=== PATIENT | male | born 1960 | race American Indian/Alaskan Native ===

== ENCOUNTER 2017-09-03 00:34 | Emergency (ER) | payer SELFPAY ==
[2017-09-03 02:34] LABS: Bacteria,Urine 1+ /HPF (Negative); WBC,Urine < 1.0 /HPF (0.0-6.0)
[2017-09-03 02:57] LABS: Bilirubin,Urine NEG (Negative); Blood,Urine NEG (Negative); Color,Urine Straw (Yellow); Protein,Urine <15 mg/dL mg/dL (Negative); Urobilinogen,Urine < 2.0 mg/dL (<2.0)
[2017-09-03] MEDS ORDERED: CATAPRES ONE (04:05)
[2017-09-03] MEDS ORDERED: CATAPRES PO ONE (04:09)
[2017-09-03 04:54] VITALS: BP 160/101
--- NOTE | 2017-09-03 04:58 | Emergency Department Report ---
ED Male HPI - General Chief complaint: Urogenital-Male Stated complaint: DRIP URINATING Time Seen by Provider: 09/03/17 03:43 Source: patient Mode of arrival: Ambulatory Limitations: No Limitations - History of Present Illness Initial comments: Patient is a 57-year-old male with a history of blood pressure is not medication presents to ED complaining incomplete voiding for the past week. Patient states above 3 years ago he was said he had a prostate infection and was given some medication but never followed up. Patient states he would like referral for specialists that he can follow up. Patient states he has no pain or burning with urination. Patient states he does not notice any blood in his urine. He denies pain of discharge, testicular swelling or pain, problems defecating, fever. - Related Data Previous Rx's Medication Instructions Recorded Last Taken Type Ciprofloxacin HCl [Ciprofloxacin 500 mg PO Q12HR #14 tab 09/03/17 Unknown Rx TAB] amLODIPine [Norvasc] 10 mg PO DAILY #40 tab 09/03/17 Unknown Rx diphenhydrAMINE [Benadryl CAP] 25 mg PO QHS PRN #20 capsule 09/03/17 Unknown Rx Allergies Allergy/AdvReac Type Severity Reaction Status Date / Time No Known Allergies Allergy Verified 09/03/17 04:13 ED Review of Systems ROS: Stated complaint: DRIP URINATING Other details as noted in HPI Constitutional: denies: chills, fever Eyes: denies: eye pain, eye discharge, vision change ENT: denies: ear pain, throat pain Respiratory: denies: cough, shortness of breath, wheezing Cardiovascular: denies: chest pain, palpitations Endocrine: no symptoms reported Gastrointestinal: denies: abdominal pain, nausea, diarrhea, constipation, hematochezia Genitourinary: denies: urgency, dysuria, frequency, hematuria, discharge, testicular pain, testicular mass Musculoskeletal: denies: back pain, joint swelling, arthralgia Skin: denies: rash, lesions Neurological: denies: headache, weakness, numbness, paresthesias Psychiatric: denies: anxiety, depression Hematological/Lymphatic: denies: easy bleeding, easy bruising ED Past Medical Hx - Past Medical History Previous Medical History?: Yes Hx Hypertension: Yes - Surgical History Past Surgical History?: Yes Additional Surgical History: stents x2 - Social History Smoking Status: Never Smoker Substance Use Type: Alcohol - Medications Home Medications: Home Medications Medication Instructions Recorded Confirmed Last Taken Type Ciprofloxacin HCl [Ciprofloxacin 500 mg PO Q12HR #14 tab 09/03/17 Unknown Rx TAB] amLODIPine [Norvasc] 10 mg PO DAILY #40 tab 09/03/17 Unknown Rx diphenhydrAMINE [Benadryl CAP] 25 mg PO QHS PRN #20 capsule 09/03/17 Unknown Rx ED Physical Exam - General Limitations: No Limitations General appearance: alert, in no apparent distress - Head Head exam: Present: atraumatic, normocephalic - Eye Eye exam: Present: normal appearance - ENT ENT exam: Present: mucous membranes moist - Neck Neck exam: Present: normal inspection - Respiratory Respiratory exam: Present: normal lung sounds bilaterally. Absent: respiratory distress - Cardiovascular Cardiovascular Exam: Present: regular rate, normal rhythm. Absent: systolic murmur, diastolic murmur, rubs, gallop - GI/Abdominal GI/Abdominal exam: Present: soft, normal bowel sounds - Rectal Rectal exam: Present: deferred - exam: Present: normal inspection. Absent: testicular tenderness, scrotal swelling External exam: Present: normal external exam. Absent: erythema, swelling, lesions, lacerations, bleeding - Extremities Exam Extremities exam: Present: normal inspection - Back Exam Back exam: Present: normal inspection - Neurological Exam Neurological exam: Present: alert, oriented X3, CN II-XII intact - Psychiatric Psychiatric exam: Present: normal affect, normal mood - Skin Skin exam: Present: warm, dry, intact, normal color. Absent: rash ED Course Vital Signs 09/03/17 09/03/17 09/03/17 01:44 04:09 04:54 Temperature 97.9 F Pulse Rate 88 79 Respiratory 19 Rate Blood Pressure 191/114 191/114 Blood Pressure 160/101 [Left] O2 Sat by Pulse 96 Oximetry ED Medical Decision Making - Medical Decision Making 57-year-old male presents with urinary tract infection ED cours blood pressure elevated during ED stay patient received clonidine 0.2 mg. Patient states he does insurance and has not been able t follow-up with the primary cancer get insurance for blood pressure. Discussed with patient reporting to take blood pressure meds and keep his blood pressure controlled as to prevent stroke, heart attack and other complications. He had no symptoms during ED stay, speaking in clear sentences, no chest pain or headache no blurry vision or any other cc Discussed the patient I'll give him referrals for pcp clinics where he can get care Also discussed with them refill his blood pressure medications Urinalysis positive for bacteria. Patient states he had a history 3 years ago of prostatitis and he never followed up similar like a urology specialist Blood pressure reduced prior to ED discharge Critical care attestation.: If time is entered above; I have spent that time in minutes in the direct care of this critically ill patient, excluding procedure time. ED Disposition Clinical Impression: Uncontrolled hypertension UTI (urinary tract infection) Qualifiers: Urinary tract infection type: acute cystitis Hematuria presence: without hematuria Qualified Code(s): N30.00 - Acute cystitis without hematuria Disposition: TO HOME OR SELFCARE Is pt being admited?: No Does the pt Need Aspirin: No Condition: Stable Instructions: Urinary Tract Infection in Men (ED), Chronic Hypertension (ED), Hypertensive Crisis (ED), Hypertension (ED) Additional Instructions: Make sure to follow up with the primary care physician as discussed. Take all your medications as you've been prescribed. It is very imperative that she take her blood pressure medication daily. Follow-up urologist regarding your prostate history If you have any worsening symptoms or develop new symptoms please return to ED immediately. Prescriptions: diphenhydrAMINE [Benadryl CAP] 25 mg PO QHS PRN #20 capsule PRN Reason: Itching amLODIPine [Norvasc] 10 mg PO DAILY #40 tab Ciprofloxacin HCl [Ciprofloxacin TAB] 500 mg PO Q12HR #14 tab Referrals: [facility] [Outside] - 3-5 Days [facility] [Outside] - 3-5 Days DARBY ALANIZ MD [Primary Care Provider] - 3-5 Days TATE LE MD [Referring] - 3-5 Days JANELL FRANK MD [Referring] - 3-5 Days LOI NAM MD [Referring] - 3-5 Days Forms: Accompanied Note, Work/School Release Form(ED) Time of Disposition: 05:01
== END 2017-09-03 05:38 | disposition home or self-care (01) ==
LOC: ED 00:34
DX: N30.00 Acute cystitis without hematuria (principal); I10 Essential (primary) hypertension
CPT/HCPCS: 81001; 87591; 99283

== ENCOUNTER 2017-09-11 13:42 | Emergency (ER) | payer OTHER ==
[2017-09-11 13:51] VITALS: BP 170/96
[2017-09-11] MEDS ORDERED: NORCO 5/325 PO ONE (14:59)
--- NOTE | 2017-09-11 15:05 | Emergency Department Report ---
ED Abdominal Pain HPI - General Chief Complaint: Abdominal Pain Stated Complaint: ABDOMINAL PAIN Time Seen by Provider: 09/11/17 14:54 Source: patient Mode of arrival: Ambulatory Limitations: No Limitations - History of Present Illness Initial Comments: 57-year-old -[place] male comes in complaining of abdominal pain located in the umbilicus area. Patient reports that he was here on 09/03/2017 and treated for urinary tract infection reports his binge taken his medication as prescribed. But woke up this morning at 3 AM with abdominal pain. Patient reports he tried taking [id number] Pepto-Bismol which did not help. Patient denies any urinary frequency no dysuria or hematuria. He denies any fever or chills or nausea no vomiting. He denies any diarrhea. Reports been having hot flashes. Patient reports he has been taking his blood pressure medication but did not take it this morning because he was concerned how to react to this abdominal pain. Patient reports his dominant pain 10 out of 10. Patient was referred to urologist which he has not followed up at this time. Patient has a past medical history of hypertension CAD with stents 2. MD Complaint: abdominal pain -: days(s) (1) Location: periumbilical Severity scale (0 -10): 10 Quality: cramping, aching Consistency: constant Improves With: nothing Worsens With: nothing Context: recent antibiotic use (currently on Cipro) Associated Symptoms: denies: nausea, vomiting, diarrhea, constipation, melena, hematuria - Related Data Previous Rx's Medication Instructions Recorded Last Taken Type Ciprofloxacin HCl [Ciprofloxacin 500 mg PO Q12HR #14 tab 09/03/17 Unknown Rx TAB] amLODIPine [Norvasc] 10 mg PO DAILY #40 tab 09/03/17 Unknown Rx diphenhydrAMINE [Benadryl CAP] 25 mg PO QHS PRN #20 capsule 09/03/17 Unknown Rx Allergies Allergy/AdvReac Type Severity Reaction Status Date / Time No Known Allergies Allergy Verified 09/03/17 04:13 ED Review of Systems ROS: Stated complaint: ABDOMINAL PAIN Other details as noted in HPI Constitutional: denies: chills, fever Eyes: denies: eye pain, eye discharge, vision change ENT: denies: ear pain, throat pain Respiratory: denies: cough, shortness of breath, wheezing Cardiovascular: denies: chest pain, palpitations Endocrine: no symptoms reported Gastrointestinal: abdominal pain. denies: nausea, vomiting, diarrhea, constipation, hematochezia Genitourinary: denies: urgency, dysuria Musculoskeletal: denies: back pain, joint swelling, arthralgia Skin: denies: rash, lesions Neurological: denies: headache, weakness, paresthesias Psychiatric: denies: anxiety, depression Hematological/Lymphatic: denies: easy bleeding, easy bruising ED Past Medical Hx - Past Medical History Previous Medical History?: Yes Hx Hypertension: Yes Additional medical history: UTI, CAD - Surgical History Past Surgical History?: Yes Additional Surgical History: stents x2 - Social History Smoking Status: Current Every Day Smoker Substance Use Type: Alcohol, Prescribed - Medications Home Medications: Home Medications Medication Instructions Recorded Confirmed Last Taken Type Ciprofloxacin HCl [Ciprofloxacin 500 mg PO Q12HR #14 tab 09/03/17 Unknown Rx TAB] amLODIPine [Norvasc] 10 mg PO DAILY #40 tab 09/03/17 Unknown Rx diphenhydrAMINE [Benadryl CAP] 25 mg PO QHS PRN #20 capsule 09/03/17 Unknown Rx ED Physical Exam - General Limitations: No Limitations ED Course Vital Signs 09/11/17 13:48 Temperature 97.8 F Pulse Rate 87 Respiratory 18 Rate Blood Pressure 170/96 O2 Sat by Pulse 98 Oximetry ED Medical Decision Making - Lab Data Result diagrams: 09/11/17 15:37 09/11/17 15:37 - Radiology Data Radiology results: report reviewed, image reviewed interpreted by me: IMPRESSION: 1. Although the bladder is not optimally distended, however, there is concentric wall thickening. Findings are most typical of acute cystitis. Neoplasm is felt to be less likely, given the diffuse appearance. 2. Stomach is distended fluid-filled which is nonspecific. Transcribed By: [facility] Dictated By: SHER LEW MD Electronically Authenticated By: SHER LEW MD Signed Date/Time: 09/11/17 3324 Critical care attestation.: If time is entered above; I have spent that time in minutes in the direct care of this critically ill patient, excluding procedure time. ED Disposition Clinical Impression: Cystitis Disposition: DC-01 TO HOME OR SELFCARE Is pt being admited?: No Does the pt Need Aspirin: No Condition: Stable Instructions: Abdominal Pain (ED) Additional Instructions: Please follow up with a urologist for further work up. I have listed a few below. Referrals: PRIMARY CARE, [Primary Care Provider] - 3-5 Days DESEAN PERAZA MD [Staff Physician] - 3-5 Days RANULFO BAGLEY MD [Referring] - 3-5 Days MCKINLEY CHAVEZ MD [Staff Physician] - 3-5 Days Forms: Work/School Release Form(ED)
[2017-09-11 15:09] LABS: Bilirubin,Urine NEG (Negative); Blood,Urine NEG (Negative); Color,Urine Yellow (Yellow); Mucus,Urine FEW /HPF; Protein,Urine <15 mg/dL mg/dL (Negative); Urobilinogen,Urine < 2.0 mg/dL (<2.0)
[2017-09-11 15:53] LABS: Basophils # (Auto) 0.1 K/mm3 (0.0-0.1); Basophils % (Auto) 0.5 % (0.0-1.8); Eosinophils % (Auto) 0.1 % (0.0-4.3); Hematocrit 48.4 % (35.5-45.6); Hemoglobin 15.8 gm/dl (11.8-15.2); Lymphocytes # (Auto) 1.2 K/mm3 (1.2-5.4); Lymphocytes % (Auto) 10.7 % (13.4-35.0); Mean Corpuscular HGB Conc 33 % (32-34); Mean Corpuscular Hemoglobin 31 pg (28-32); Mean Corpuscular Volume 94 fl (84-94); Monocytes # (Auto) 0.5 K/mm3 (0.0-0.8); Monocytes % (Auto) 3.9 % (0.0-7.3); Platelet Count 337 K/mm3 (140-440); Red Blood Count 5.16 M/mm3 (3.65-5.03); Red Cell Distribution Width 14.6 % (13.2-15.2)
[2017-09-11 16:13] LABS: Alanine Aminotransferase 28 units/L (7-56); Albumin 4.6 g/dL (3.9-5); BUN/Creatinine Ratio 11; Blood Urea Nitrogen 8 mg/dL (9-20); Calcium 9.9 mg/dL (8.4-10.2); Hemolysis Index 6; Lipase 23 units/L (13-60)
--- NOTE | 2017-09-11 16:31 | Cat Scan Report ---
FINAL REPORT EXAM: CT ABDOMEN PELVIS WO CON HISTORY: persistent abdominal pain. TECHNIQUE: Standard unenhanced CT of the abdomen and pelvis. Coronal and sagittal reconstruction was also performed. Small amount of oral contrast is present in the ascending colon and distal small bowel. PRIORS: None. FINDINGS: There is a small amount of oral contrast present in the ascending colon and distal small bowel. Within the abdomen, the liver, spleen, pancreas, gallbladder, adrenal glands, and kidneys are unremarkable. The stomach is mildly distended and filled with fluid. No evidence for retroperitoneal or pelvic lymphadenopathy is seen. Moderate stool is present throughout the colon. The bowel loops have normal caliber. No soft tissue mass, fluid collection, inflammatory change, or free air is seen within the abdomen or pelvis. The appendix is normal. Within the pelvis, the bladder is not optimally distended but demonstrates diffuse concentric wall thickening up to 7.6 mm. Findings are most typical of cystitis, less likely neoplasm. The prostate is normal. No evidence for mass or lymphadenopathy is seen in the pelvis. Images through the upper abdomen include the lung bases which are expanded and clear. Bony structures show no focal abnormalities and are intact. IMPRESSION: 1. Although the bladder is not optimally distended, however, there is concentric wall thickening. Findings are most typical of acute cystitis. Neoplasm is felt to be less likely, given the diffuse appearance. 2. Stomach is distended fluid-filled which is nonspecific.
== END 2017-09-11 17:03 | disposition home or self-care (01) ==
LOC: ED 13:42
DX: N30.90 Cystitis, unspecified without hematuria (principal); I10 Essential (primary) hypertension; F17.200 Nicotine dependence, unspecified, uncomplicated
CPT/HCPCS: 36415; 74176; 80053; 81001; 82150; 83690; 85025

== ENCOUNTER 2018-11-08 20:08 | Inpatient (IN) | payer OTHER ==
--- NOTE | 2018-11-08 20:36 | Event Note ---
ED Screening Note ED Screening Note: pt presents with substernal CP that began yesterday states it feels like a pressure +sob of exertion states he does alot of walking and has been carrying a heavy bookbag no radiation of the pain no N/V PMHx HTN, cardiac stents states he has not been taking his medication for two years +smoker +drinker denies drug use This initial assessment/diagnostic orders/clinical plan/treatment(s) is/are subject to change based on patients health status, clinical progression and re- assessment by fellow clinical providers in the ED. Further treatment and workup at subsequent clinical providers discretion. Patient/guardian urged not to elope from the ED as their condition may be serious if not clinically assessed and managed. Initial orders include: CP protocol
[2018-11-08 21:18] LABS: Basophils # (Auto) 0.1 K/mm3 (0.0-0.1); Basophils % (Auto) 0.8 % (0.0-1.8); Eosinophils # (Auto) 0.1 K/mm3 (0.0-0.4); Eosinophils % (Auto) 1.4 % (0.0-4.3); Hematocrit 39.5 % (35.5-45.6); Hemoglobin 13.5 gm/dl (11.8-15.2); Lymphocytes # (Auto) 1.9 K/mm3 (1.2-5.4); Lymphocytes % (Auto) 25.2 % (13.4-35.0); Mean Corpuscular HGB Conc 34 % (32-34); Mean Corpuscular Volume 94 fl (84-94); Monocytes # (Auto) 0.5 K/mm3 (0.0-0.8); Platelet Count 236 K/mm3 (140-440); Red Blood Count 4.23 M/mm3 (3.65-5.03); Red Cell Distribution Width 15.3 % (13.2-15.2)
[2018-11-08 21:28] LABS: INR 0.98 (0.87-1.13)
[2018-11-08 21:29] LABS: Partial Thromboplastin Time 25.8 Sec. (24.2-36.6)
--- NOTE | 2018-11-08 21:46 | XRay Report ---
PROCEDURE: XR CHEST ROUTINE 2V TECHNIQUE: PA and lateral chest radiographs were obtained. HISTORY: Chest Pain COMPARISONS: None. FINDINGS: Heart: Normal. Mediastinum/Vessels: Normal. Lungs/Pleural space: Lungs are hyperinflated. There are no confluent infiltrates or mass lesions. Pl eural spaces are clear.. Bony thorax: No acute osseous abnormality. IMPRESSION: COPD No acute pulmonary process. This document is electronically signed by Jorge Duff MD., November 08 2018 09:44:24 PM ET
[2018-11-08 21:53] LABS: Alanine Aminotransferase 16 units/L (7-56); Albumin 4.1 g/dL (3.9-5); BUN/Creatinine Ratio 14; Blood Urea Nitrogen 13 mg/dL (9-20); Calcium 10.1 mg/dL (8.4-10.2); Hemolysis Index 10
[2018-11-08] MEDS ORDERED: LOVENOX SUB-Q ONE (23:24)
--- NOTE | 2018-11-08 23:32 | Emergency Department Report ---
ED Chest Pain HPI - General Chief Complaint: Chest Pain Stated Complaint: CP Time Seen by Provider: 11/08/18 20:33 Source: patient Mode of arrival: Ambulatory Limitations: No Limitations - History of Present Illness Initial Comments: 58-year-old male with history of CAD and 2 stents presents to the complaint of chest pain or shortness of breath 2 days. Patient states pain is currently resolved. However states it was substernal and nonradiating. Patient denies nausea, vomiting, diaphoresis. Reports tobacco use, denies drug use. Denies having a loin trimmer currently. MD Complaint: chest pain -: days(s) (2) Onset: during exertion Pain Location: substernal Pain Radiation: none Severity scale (0 -10): 0 Quality: tightness Consistency: now resolved re: dyspnea. denies: nausea, vomting, diaphoresis - Related Data Previous Rx's Medication Instructions Recorded Last Taken Type Ciprofloxacin HCl [Ciprofloxacin 500 mg PO Q12HR #14 tab 09/03/17 Unknown Rx TAB] amLODIPine [Norvasc] 10 mg PO DAILY #40 tab 09/03/17 Unknown Rx diphenhydrAMINE [Benadryl CAP] 25 mg PO QHS PRN #20 capsule 09/03/17 Unknown Rx Allergies Allergy/AdvReac Type Severity Reaction Status Date / Time No Known Allergies Allergy Verified 09/03/17 04:13 Heart Score - HEART Score History: Slightly suspicious EKG: Non-specific Age: 45-65 Risk factors: > 3 risk factors or hx of atherosclerotic disease Troponin: 1-3x normal limit HEART Score: 5 ED Review of Systems ROS: Stated complaint: CP Other details as noted in HPI Comment: All other systems reviewed and negative Constitutional: denies: chills, fever Respiratory: shortness of breath Cardiovascular: chest pain ED Past Medical Hx - Past Medical History Previous Medical History?: Yes Hx Hypertension: Yes Additional medical history: UTI, CAD - Surgical History Past Surgical History?: Yes Additional Surgical History: stents x2 - Social History Smoking Status: Current Every Day Smoker Substance Use Type: Alcohol - Medications Home Medications: Home Medications Medication Instructions Recorded Confirmed Last Taken Type Ciprofloxacin HCl [Ciprofloxacin 500 mg PO Q12HR #14 tab 09/03/17 Unknown Rx TAB] amLODIPine [Norvasc] 10 mg PO DAILY #40 tab 09/03/17 Unknown Rx diphenhydrAMINE [Benadryl CAP] 25 mg PO QHS PRN #20 capsule 09/03/17 Unknown Rx ED Physical Exam - General Limitations: No Limitations General appearance: alert, in no apparent distress - Head Head exam: Present: atraumatic, normocephalic - Eye Eye exam: Present: normal appearance - ENT ENT exam: Present: mucous membranes moist - Neck Neck exam: Present: normal inspection - Respiratory Respiratory exam: Present: normal lung sounds bilaterally. Absent: respiratory distress - Cardiovascular Cardiovascular Exam: Present: regular rate, normal rhythm - GI/Abdominal GI/Abdominal exam: Present: soft. Absent: distended, tenderness - Extremities Exam Extremities exam: Absent: pedal edema, calf tenderness - Neurological Exam Neurological exam: Present: alert, oriented X3 - Psychiatric Psychiatric exam: Present: normal affect, normal mood - Skin Skin exam: Present: warm, dry, intact, normal color ED Course Vital Signs 11/08/18 11/08/18 11/08/18 20:39 22:48 22:52 Temperature 98.6 F Pulse Rate 76 67 Respiratory 18 13 18 Rate Blood Pressure 167/102 Blood Pressure 157/89 [Left] O2 Sat by Pulse 98 97 Oximetry 11/08/18 11/08/18 23:00 23:31 Temperature Pulse Rate 72 62 Respiratory 12 14 Rate Blood Pressure 182/104 182/104 Blood Pressure [Left] O2 Sat by Pulse 99 98 Oximetry ED Medical Decision Making - Lab Data Result diagrams: 11/08/18 21:00 11/08/18 21:00 - EKG Data -: EKG Interpreted by Nh EKG shows normal: sinus rhythm, axis, intervals, QRS complexes Rate: normal - EKG Data Interpretation: nonspecific ST-T wave yonatan - Radiology Data Radiology results: report reviewed, image reviewed - Medical Decision Making 58-year-old male presents to ED with 2 day history of chest pain and dyspnea on exertion. Patient reports history of CAD with stents in place. EKG sent and reviewed by Dr Moses, powder blender on-call, does not show evidence of STEMI. Troponin slightly elevated at 0.1. Patient is chest pain- free at this time. Aspirin and Lovenox given. Will admit to hospitalist, Dr Rivera, for further workup of his chest pain. - Differential Diagnosis ACS, pulm edema, pneumonia Critical Care Time: Yes Critical care time in (mins) excluding proc time.: 35 Critical care attestation.: If time is entered above; I have spent that time in minutes in the direct care of this critically ill patient, excluding procedure time. Critical Care Time: 35 minutes ED Disposition Clinical Impression: NSTEMI (non-ST elevated myocardial infarction) Disposition: OP ADMIT IP TO THIS HOSP Is pt being admited?: Yes Condition: Stable Referrals: ARMANDO HOWARD MD [Primary Care Provider] - 3-5 Days Time of Disposition: 00:27
[2018-11-09] MEDS ORDERED: ASPIRIN PO ONE (00:09)
[2018-11-09] MEDS ORDERED: SODIUM CHLORIDE FLUSH SYRINGE 10 ML IV PRN (00:35)
[2018-11-09] MEDS ORDERED: TYLENOL PO PRN (00:35)
[2018-11-09] MEDS ORDERED: ZOFRAN IV PRN (00:35)
[2018-11-09] MEDS ORDERED: DILAUDID IV PRN (00:37)
[2018-11-09] MEDS ORDERED: NITROSTAT SL PRN (00:37)
[2018-11-09] MEDS ORDERED: PROVENTIL IH PRN (01:55)
--- NOTE | 2018-11-09 01:59 | History and Physical Report ---
<ROBERT SILVA - Last Filed: 11/09/18 02:12> History of Present Illness Date of examination: 11/09/18 Date of admission: 11/09/2018 Chief complaint: Chest pain and Shortness of breath History of present illness: 58-year-old -[place] Citizen male who is an ongoing smoker with history of CAD s/p stent 2 (2009), HTN, HLD presents to [facility] seen with complaint of substernal chest pain shortness of breath. Patient states that he's been experiencing intermittent chest pain and shortness of breath. Chest pain is substernal and nonradiating. He describes it as sharp and rated 10/10. Patient states that he tried taking Advil, etc. strength ibuprofen and aspirin to relieve his pain, but the pain persisted. Patient states he experienced shortness of breath with ambulation. Admits to being noncompliant with medication. Denies nausea, vomiting, diarrhea, diaphoresis, fever, chills, headache, cough, or hemoptysis Past History Past Medical History: CAD, hypertension, hyperlipidemia, other Past Surgical History: Other (status post stent placement x2 in 2009) Social history: smoking (one pack per day), other (occasional alcohol consumption) Family history: no significant family history Medications and Allergies Allergies Allergy/AdvReac Type Severity Reaction Status Date / Time No Known Allergies Allergy Verified 09/03/17 04:13 Home Medications Medication Instructions Recorded Confirmed Last Taken Type Acetaminophen [Acetaminophen TAB] 325 mg PO Q4H PRN #15 tablet 11/10/18 Unknown Rx Aspirin EC 325 mg PO QDAY #30 tablet 11/10/18 Unknown Rx AtorvaSTATin [Lipitor] 40 mg PO QHS #30 tablet 11/10/18 Unknown Rx Carvedilol [Coreg] 6.25 mg PO BID #60 tablet 11/10/18 Unknown Rx Clopidogrel [Plavix] 75 mg PO QDAY #30 tablet 11/10/18 Unknown Rx ISOSORBIDE MONOnitrate [Imdur ER] 30 mg PO DAILY #30 tablet 11/10/18 Unknown Rx Lisinopril [Zestril TAB] 40 mg PO DAILY #30 tablet 11/10/18 Unknown Rx Nicotine [Habitrol] 14 mg TD QDAY #14 patch 11/10/18 Unknown Rx Active Meds: Active Medications Acetaminophen (Tylenol) 650 mg PO Q4H PRN PRN Reason: Pain MILD(1-3)/Fever >100.5/FLORES Aspirin (Ecotrin) 325 mg PO QDAY KOLE Atorvastatin Calcium (Lipitor) 40 mg PO QHS KOLE Carvedilol (Coreg) 6.25 mg PO BID KOLE Enoxaparin Sodium (Lovenox) 80 mg SUB-Q BID KOLE Hydromorphone HCl (Dilaudid) 0.5 mg IV Q3H PRN PRN Reason: Pain , Severe (7-10) Stop: 11/10/18 23:59 Isosorbide Mononitrate (Imdur) 30 mg PO DAILY KOLE Lisinopril (Zestril) 40 mg PO DAILY KOLE Morphine Sulfate (Morphine) 2 mg IV Q4H PRN PRN Reason: Pain, Moderate (4-6) Stop: 11/10/18 23:59 Nitroglycerin (Nitrostat) 0.4 mg SL .Q5MIN PRN PRN Reason: Chest Pain Ondansetron HCl (Zofran) 4 mg IV Q8H PRN PRN Reason: Nausea And Vomiting Sodium Chloride (Sodium Chloride Flush Syringe 10 Ml) 10 ml IV BID KOLE Sodium Chloride (Sodium Chloride Flush Syringe 10 Ml) 10 ml IV PRN PRN PRN Reason: LINE FLUSH Review of Systems All systems: negative (reviewed and no additional remarkable complaints except as noted) Cardiovascular: chest pain, shortness of breath, dyspnea on exertion Respiratory: shortness of breath, dyspnea on exertion Exam - Physical Exam Narrative exam: Physical exam General appearance: Present: No acute distress, alert and oriented 3, middle- age male - EENT Eyes: Present: PERRL, EOM intact ENT: hearing intact, normal dentition - Neck Neck: Present: supple, normal ROM - Respiratory Respiratory effort: Non-labored Respiratory: bilateral: diminished (bases) - Cardiovascular Heart rate: 68 (bpm) Rhythm: Sinus rhythm, nonspecific ST changes Heart Sounds: Present: S1 & S2. Absent: rub, click - Extremities Extremities: no ischemia, pulses intact, - Peripheral Assessment Peripheral Pulses: within normal limits - Abdominal General gastrointestinal: soft, non-tender, normal bowel sounds - Integumentary Integumentary: Present: warm, dry - Musculoskeletal Musculoskeletal: Able to move all extremities, normal gait -Neurological Neurological: CNII-XII intact - Psychiatric Psychiatric: cooperative - Constitutional Vitals: Temp Pulse Resp BP Pulse Ox 98.6 F 69 16 150/102 97 11/08/18 20:39 11/09/18 01:31 11/09/18 01:31 11/09/18 01:31 11/09/18 01:31 Results - Labs CBC & Chem 7: 11/08/18 21:00 11/08/18 21:00 Labs: Laboratory Last Values WBC 7.6 K/mm3 (4.5-11.0) 11/08/18 21:00 RBC 4.23 M/mm3 (3.65-5.03) 11/08/18 21:00 Hgb 13.5 gm/dl (11.8-15.2) 11/08/18 21:00 Hct 39.5 % (35.5-45.6) 11/08/18 21:00 MCV 94 fl (84-94) 11/08/18 21:00 MCH 32 pg (28-32) 11/08/18 21:00 MCHC 34 % (32-34) 11/08/18 21:00 RDW 15.3 % (13.2-15.2) H 11/08/18 21:00 Plt Count 236 K/mm3 (140-440) 11/08/18 21:00 Lymph % (Auto) 25.2 % (13.4-35.0) 11/08/18 21:00 [place] % (Auto) 7.0 % (0.0-7.3) 11/08/18 21:00 Eos % (Auto) 1.4 % (0.0-4.3) 11/08/18 21:00 Baso % (Auto) 0.8 % (0.0-1.8) 11/08/18 21:00 Lymph # 1.9 K/mm3 (1.2-5.4) 11/08/18 21:00 [place] # 0.5 K/mm3 (0.0-0.8) 11/08/18 21:00 Eos # 0.1 K/mm3 (0.0-0.4) 11/08/18 21:00 Baso # 0.1 K/mm3 (0.0-0.1) 11/08/18 21:00 Seg Neutrophils % 65.6 % (40.0-70.0) 11/08/18 21:00 Seg Neutrophils # 5.0 K/mm3 (1.8-7.7) 11/08/18 21:00 PT 13.6 Sec. (12.2-14.9) 11/08/18 21:00 INR 0.98 (0.87-1.13) 11/08/18 21:00 APTT 25.8 Sec. (24.2-36.6) 11/08/18 21:00 Sodium 141 mmol/L (137-145) 11/08/18 21:00 Potassium 4.3 mmol/L (3.6-5.0) 11/08/18 21:00 Chloride 105.3 mmol/L (98-107) 11/08/18 21:00 Carbon Dioxide 28 mmol/L (22-30) 11/08/18 21:00 12 mmol/L 11/08/18 21:00 BUN 13 mg/dL (9-20) 11/08/18 21:00 0.9 mg/dL (0.8-1.5) 11/08/18 21:00 Estimated GFR > 60 ml/min 11/08/18 21:00 14 % 11/08/18 21:00 Glucose 106 mg/dL (75-100) H 11/08/18 21:00 Calcium 10.1 mg/dL (8.4-10.2) 11/08/18 21:00 0.40 mg/dL (0.1-1.2) 11/08/18 21:00 AST 25 units/L (5-40) 11/08/18 21:00 ALT 16 units/L (7-56) 11/08/18 21:00 67 units/L (35-129) 11/08/18 21:00 0.106 ng/mL (0.00-0.029) H* 11/08/18 21:00 NT-Pro-B Natriuret Pep 102.5 pg/mL (0-900) 11/08/18 21:00 7.1 g/dL (6.3-8.2) 11/08/18 21:00 4.1 g/dL (3.9-5) 11/08/18 21:00 1.4 % 11/08/18 21:00 - Imaging and Cardiology EKG: image reviewed (68 bpm, nonspecific ST changes) Chest x-ray: report reviewed (no acute cardiopulmonary abnormalities), image reviewed Assessment and Plan Assessment and plan: 58-year-old -[place] Citizen male who is an ongoing smoker with history of CAD s/p stent 2 (2009), HTN, HLD presents to [facility] seen with complaint of nonradiating substernal chest pain shortness of breath. On presentation patient was in hypertensive urgency with blood pressure 182/104. EKG unrevealing for acute ischemic abnormalities. 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 No evidence of STEMI was noted. Initial troponin elevated at 0.106. He was given Lovenox 80 mg and aspirin 325. Will admit to Telemetry unit for further evaluation. Elevated troponin Hypertensive urgency Hypertension CAD S/P stent x2 (2009) HLD Tobacco abuse Plan: Continue supportive care Continuous telemetry monitoring Cardiology consulted Repeat troponin pending Start Lovenox 80 mg twice a day ASA 325mg, Lipitor 40 mg daily at bedtime Monitor BP IV hydralazine when necessary Imdur 30mg daily, lisinopril 40 mg daily Albuterol when necessary Counseled for cessation; start nicotine patch DVT PPX on lovenox and SCD's This patient was seen in conjunction with Dr. Rivera. Advance Directives: No VTE prophylaxis?: Chemical Plan of care discussed with patient/family: Yes <BROOKLYNN RIVERA - Last Filed: 11/11/18 22:14> History of Present Illness Date of admission: 11/09/18 00:35 Medications and Allergies Active Meds: Active Medications Acetaminophen (Tylenol) 650 mg PO Q4H PRN PRN Reason: Pain MILD(1-3)/Fever >100.5/FLORES Albuterol (Proventil) 2.5 mg IH Q4HRT PRN PRN Reason: Shortness Of Breath Aspirin (Ecotrin) 325 mg PO QDAY KOLE Atorvastatin Calcium (Lipitor) 40 mg PO QHS KOLE Carvedilol (Coreg) 6.25 mg PO BID KOLE Enoxaparin Sodium (Lovenox) 80 mg SUB-Q BID KOLE Hydralazine HCl (Apresoline) 10 mg IV Q4HR PRN PRN Reason: Blood Pressure Hydromorphone HCl (Dilaudid) 0.5 mg IV Q3H PRN PRN Reason: Pain , Severe (7-10) Stop: 11/10/18 23:59 Isosorbide Mononitrate (Imdur) 30 mg PO DAILY [facility] Lisinopril (Zestril) 40 mg PO DAILY [facility] Morphine Sulfate (Morphine) 2 mg IV Q4H PRN PRN Reason: Pain, Moderate (4-6) Stop: 11/10/18 23:59 Nicotine (Habitrol) 14 mg TD QDAY [facility] Nitroglycerin (Nitrostat) 0.4 mg SL .Q5MIN PRN PRN Reason: Chest Pain Ondansetron HCl (Zofran) 4 mg IV Q8H PRN PRN Reason: Nausea And Vomiting Sodium Chloride (Sodium Chloride Flush Syringe 10 Ml) 10 ml IV BID KOLE Sodium Chloride (Sodium Chloride Flush Syringe 10 Ml) 10 ml IV PRN PRN PRN Reason: LINE FLUSH Exam - Constitutional Vitals: Temp Pulse Resp BP Pulse Ox 98.6 F 66 14 137/95 97 11/08/18 20:39 11/09/18 03:31 11/09/18 03:31 11/09/18 03:31 11/09/18 03:31 Results - Labs CBC & Chem 7: 11/10/18 05:29 11/10/18 05:29 Labs: Laboratory Last Values WBC 7.6 K/mm3 (4.5-11.0) 11/08/18 21:00 RBC 4.23 M/mm3 (3.65-5.03) 11/08/18 21:00 Hgb 13.5 gm/dl (11.8-15.2) 11/08/18 21:00 Hct 39.5 % (35.5-45.6) 11/08/18 21:00 MCV 94 fl (84-94) 11/08/18 21:00 MCH 32 pg (28-32) 11/08/18 21:00 MCHC 34 % (32-34) 11/08/18 21:00 RDW 15.3 % (13.2-15.2) H 11/08/18 21:00 Plt Count 236 K/mm3 (140-440) 11/08/18 21:00 Lymph % (Auto) 25.2 % (13.4-35.0) 11/08/18 21:00 [place] % (Auto) 7.0 % (0.0-7.3) 11/08/18 21:00 Eos % (Auto) 1.4 % (0.0-4.3) 11/08/18 21:00 Baso % (Auto) 0.8 % (0.0-1.8) 11/08/18 21:00 Lymph # 1.9 K/mm3 (1.2-5.4) 11/08/18 21:00 [place] # 0.5 K/mm3 (0.0-0.8) 11/08/18 21:00 Eos # 0.1 K/mm3 (0.0-0.4) 11/08/18 21:00 Baso # 0.1 K/mm3 (0.0-0.1) 11/08/18 21:00 Seg Neutrophils % 65.6 % (40.0-70.0) 11/08/18 21:00 Seg Neutrophils # 5.0 K/mm3 (1.8-7.7) 11/08/18 21:00 PT 13.6 Sec. (12.2-14.9) 11/08/18 21:00 INR 0.98 (0.87-1.13) 11/08/18 21:00 APTT 25.8 Sec. (24.2-36.6) 11/08/18 21:00 Sodium 141 mmol/L (137-145) 11/08/18 21:00 Potassium 4.3 mmol/L (3.6-5.0) 11/08/18 21:00 Chloride 105.3 mmol/L (98-107) 11/08/18 21:00 Carbon Dioxide 28 mmol/L (22-30) 11/08/18 21:00 12 mmol/L 11/08/18 21:00 BUN 13 mg/dL (9-20) 11/08/18 21:00 0.9 mg/dL (0.8-1.5) 11/08/18 21:00 Estimated GFR > 60 ml/min 11/08/18 21:00 14 % 11/08/18 21:00 Glucose 106 mg/dL (75-100) H 11/08/18 21:00 5.6 % (4-6) 11/09/18 01:26 Calcium 10.1 mg/dL (8.4-10.2) 11/08/18 21:00 0.40 mg/dL (0.1-1.2) 11/08/18 21:00 AST 25 units/L (5-40) 11/08/18 21:00 ALT 16 units/L (7-56) 11/08/18 21:00 67 units/L (35-129) 11/08/18 21:00 0.181 ng/mL (0.00-0.029) H* D 11/08/18 22:59 NT-Pro-B Natriuret Pep 102.5 pg/mL (0-900) 11/08/18 21:00 7.1 g/dL (6.3-8.2) 11/08/18 21:00 4.1 g/dL (3.9-5) 11/08/18 21:00 1.4 % 11/08/18 21:00 Triglycerides 105 mg/dL (2-149) 11/08/18 21:00 Cholesterol 152 mg/dL (50-199) 11/08/18 21:00 78 mg/dL (50-130) 11/08/18 21:00 68 mg/dL (40-59) H 11/08/18 21:00 2.23 % 11/08/18 21:00 Presumptive negative 11/09/18 00:55 Presumptive negative 11/09/18 00:55 Ur Barbiturates Screen Presumptive negative 11/09/18 00:55 Ur Phencyclidine Scrn Presumptive negative 11/09/18 00:55 Ur Amphetamines Screen Presumptive negative 11/09/18 00:55 U Benzodiazepines Scrn Presumptive negative 11/09/18 00:55 Presumptive negative 11/09/18 00:55 U Marijuana (THC) Screen Presumptive positive 11/09/18 00:55 Disclamer 11/09/18 00:55 Assessment and Plan Assessment and plan: Patient seen and examined, discussed with nurse practitioner. This is a 58-year-old man with a history of coronary artery disease, hypertension, hyperlipidemia, noncompliant with medications, come to emergency room with complaints of chest pain. Physical exam is benign,qagree with plan as discussed above
[2018-11-09] MEDS ORDERED: APRESOLINE IV PRN (02:16)
[2018-11-09 02:19] LABS: Amphetamine Screen,Urine PRESUMPTIVE NEGATIVE; Benzodiazepines Screen,Urine PRESUMPTIVE NEGATIVE; Cocaine Screen,Urine PRESUMPTIVE NEGATIVE; Methadone Screen,Urine PRESUMPTIVE NEGATIVE; Opiate Screen,Urine PRESUMPTIVE NEGATIVE
[2018-11-09 03:23] LABS: Cannabinoid Screen,Urine PRESUMPTIVE POSITIVE
[2018-11-09 03:47] LABS: Chol/HDL Ratio 2.23 %; HDL Cholesterol 68 mg/dL (40-59); LDL Cholesterol,Direct 78 mg/dL (50-130)
[2018-11-09 06:49] LABS: Creatine Kinase MB 21.4 ng/mL (0.0-4.0)
[2018-11-09] MEDS: HABITROL TD SCH (09:33)
[2018-11-09] MEDS: ZESTRIL PO SCH (09:34)
[2018-11-09] MEDS: ECOTRIN PO SCH (09:34)
[2018-11-09] MEDS: IMDUR PO SCH (09:34)
[2018-11-09] MEDS: SODIUM CHLORIDE FLUSH SYRINGE 10 ML IV SCH ×2 (09:34→21:58)
[2018-11-09] MEDS ORDERED: LOVENOX SUB-Q SCH (10:00)
--- NOTE | 2018-11-09 10:16 | Consultation ---
History of Present Illness Consult date: 11/09/18 Consult reason: chest pain History of present illness: 58 year old male admitted with chest pain. He recently moced from [place]. He brings with him clinic visit note from 2012 stating that he had previous PCI to Cx and LAD in 2009 and is known to have an occluded RCA. Cardiac enzymes are consistent with a NSTEMI. Patient admits non-compliance with meds. He has been out of blood thinners for 1 year. He is a chronic smoker. Currently he is as ymptomatic. Past History Past Medical History: CAD, hypertension, hyperlipidemia, other Past Surgical History: Other (status post stent placement x2 in 2009) Social history: smoking (one pack per day), other (occasional alcohol consumption) Family history: no significant family history Medications and Allergies Allergies Allergy/AdvReac Type Severity Reaction Status Date / Time No Known Allergies Allergy Verified 09/03/17 04:13 Home Medications Medication Instructions Recorded Confirmed Last Taken Type amLODIPine [Norvasc] 10 mg PO DAILY #40 tab 09/03/17 11/09/18 Unknown Rx diphenhydrAMINE [Benadryl CAP] 25 mg PO QHS PRN #20 capsule 09/03/17 11/09/18 Unknown Rx Aspirin [Aspirin BABY CHEW TAB] 81 mg PO DAILY 11/09/18 11/09/18 11/08/18 History AtorvaSTATin [Lipitor] 40 mg PO QHS 11/09/18 11/09/18 Unknown History Carvedilol [Coreg] 6.25 mg PO BID 11/09/18 11/09/18 Unknown History Clopidogrel [Plavix] 75 mg PO DAILY 11/09/18 11/09/18 Unknown History ISOSORBIDE MONOnitrate [Imdur ER] 30 mg PO DAILY 11/09/18 11/09/18 Unknown History Lisinopril [Zestril TAB] 40 mg PO DAILY 11/09/18 11/09/18 11/03/17 History Active Meds: Active Medications Acetaminophen (Tylenol) 650 mg PO Q4H PRN PRN Reason: Pain MILD(1-3)/Fever >100.5/FLORES Albuterol (Proventil) 2.5 mg IH Q4HRT PRN PRN Reason: Shortness Of Breath Aspirin (Ecotrin) 325 mg PO QDAY KOLE Last Admin: 11/09/18 09:34 Dose: 325 mg Documented by: Atorvastatin Calcium (Lipitor) 40 mg PO QHS [facility] Carvedilol (Coreg) 6.25 mg PO BID [facility] Enoxaparin Sodium (Lovenox) 80 mg SUB-Q BID [facility] Hydralazine HCl (Apresoline) 10 mg IV Q4HR PRN PRN Reason: Blood Pressure Hydromorphone HCl (Dilaudid) 0.5 mg IV Q3H PRN PRN Reason: Pain , Severe (7-10) Stop: 11/10/18 23:59 Isosorbide Mononitrate (Imdur) 30 mg PO DAILY [facility] Last Admin: 11/09/18 09:34 Dose: 30 mg Documented by: Lisinopril (Zestril) 40 mg PO DAILY [facility] Last Admin: 11/09/18 09:34 Dose: 40 mg Documented by: Morphine Sulfate (Morphine) 2 mg IV Q4H PRN PRN Reason: Pain, Moderate (4-6) Stop: 11/10/18 23:59 Nicotine (Habitrol) 14 mg TD QDAY [facility] Last Admin: 11/09/18 09:33 Dose: 14 mg Documented by: Nitroglycerin (Nitrostat) 0.4 mg SL .Q5MIN PRN PRN Reason: Chest Pain Ondansetron HCl (Zofran) 4 mg IV Q8H PRN PRN Reason: Nausea And Vomiting Sodium Chloride (Sodium Chloride Flush Syringe 10 Ml) 10 ml IV BID [facility] Last Admin: 11/09/18 09:34 Dose: 10 ml Documented by: Sodium Chloride (Sodium Chloride Flush Syringe 10 Ml) 10 ml IV PRN PRN PRN Reason: LINE FLUSH Review of Systems All systems: negative Physical Examination Vital Signs Temp Pulse Resp BP Pulse Ox 98.6 F 76 18 157/89 98 11/08/18 20:39 11/08/18 20:39 11/08/18 20:39 11/08/18 20:39 11/08/18 20:39 General appearance: no acute distress HEENT: Positive: PERRL Neck: Positive: neck supple Cardiac: Positive: Reg Rate and Rhythm Lungs: Positive: Normal Exam Neuro: Positive: Grossly Intact Abdomen: Positive: Soft Extremities: Absent: edema Results 11/08/18 21:00 11/08/18 21:00 Cardiac Enzymes 11/08/18 11/09/18 Range/Units 21:00 05:14 AST 25 (5-40) units/L CK-MB (CK-2) 21.4 H (0.0-4.0) ng/mL Coagulation 11/08/18 Range/Units 21:00 PT 13.6 (12.2-14.9) Sec. INR 0.98 (0.87-1.13) APTT 25.8 (24.2-36.6) Sec. Lipids 11/08/18 Range/Units 21:00 Triglycerides 105 (2-149) mg/dL Cholesterol 152 (50-199) mg/dL HDL Cholesterol 68 H (40-59) mg/dL Cholesterol/HDL Ratio 2.23 % CBC 11/08/18 Range/Units 21:00 WBC 7.6 (4.5-11.0) K/mm3 RBC 4.23 (3.65-5.03) M/mm3 Hgb 13.5 (11.8-15.2) gm/dl Hct 39.5 (35.5-45.6) % Plt Count 236 (140-440) K/mm3 Lymph # 1.9 (1.2-5.4) K/mm3 [place] # 0.5 (0.0-0.8) K/mm3 Eos # 0.1 (0.0-0.4) K/mm3 Baso # 0.1 (0.0-0.1) K/mm3 Comprehensive Metabolic Panel 11/08/18 Range/Units 21:00 Sodium 141 (137-145) mmol/L Potassium 4.3 (3.6-5.0) mmol/L Chloride 105.3 (98-107) mmol/L Carbon Dioxide 28 (22-30) mmol/L BUN 13 (9-20) mg/dL Creatinine 0.9 (0.8-1.5) mg/dL Glucose 106 H (75-100) mg/dL Calcium 10.1 (8.4-10.2) mg/dL AST 25 (5-40) units/L ALT 16 (7-56) units/L Alkaline Phosphatase 67 (35-129) units/L Total Protein 7.1 (6.3-8.2) g/dL Albumin 4.1 (3.9-5) g/dL - EKG Interpretation EKG: sinus rhythm EKG interpretations - Telemetry EKG Rhythm: Sinus Rhythm Assessment and Plan NSTEMI Inferior Q waves on ECG Coronary artery disease s/p PCI to LAD and Cx in 2009 and known occluded RCA Tobacco use/marijuana use Hyperlipidemia Non-compliance Recommendations: LHC is warranted. 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 Will therefore attempt coronary angio on monday
[2018-11-09] MEDS: LOVENOX SUB-Q SCH ×3 (11:23→22:02)
[2018-11-09] MEDS: COREG PO SCH ×2 (11:24→21:57)
[2018-11-09 11:36] LABS: Creatine Kinase MB 15.9 ng/mL (0.0-4.0)
--- NOTE | 2018-11-09 13:52 | Progress Note ---
Assessment and Plan Assessment and plan: Patient is a 58 yo man with a history of hypertension, dyslipidemia, CAD s/p shent and tobacco dependency who presented to [facility] ED with chest pains. NSTEMI, Inferior Q waves on ECG: [facility] pending, Cardiology is following, continue therapeutic A/C, on therapeutic Lovenox Coronary artery disease s/p PCI to LAD and Cx in 2009 and known occluded RCA: asa/statin/coreg Tobacco use/marijuana use: child and family counselor on stopping. Nicotine patch offered Hyperlipidemia: treat with statin Non-compliance: counseling done Hypertensive urgency: iv antihypertensives prn DVT ppx on therp. lovenox prolonged inpatient services 32 minutes History Interval history: Patient was seen and examined. Follow-up on current diagnosis NSTEMI, still had intermittent Chest pains this morning. No overnight events reported to me. Patient denies any shortness breath, nausea/vomiting or severe headaches. Imaging, nursing note, chart, labs and old chart reviewed. Discussed with patient. Hospitalist Physical - Physical exam Narrative exam: Gen: WDWN, NAD, Awake, Alert, Orientated HEENT: NCAT, EOMI, PERRL, OP Clear Neck: supple, no adenopathy, no thyromegaly, no JVD CVS/Heart: RRR, normal S1S2, pulses present bilaterally Chest/Lungs: CTA B, Symmetrical chest expansion, good air entry bilaterally GI/Abdomen: soft, NTND, good bowel sounds, no guarding or rebound /Bladder: no suprapubic tenderness, no CVA or paraspinal tenderness Extermity/Skin: no c/c/e, no obvious rash MSK: FROM x 4 Neuro: CN 2-12 grossly intact, no new focal deficits Psych: calm - Constitutional Vitals: Temp Pulse Resp BP Pulse Ox 98.5 F 66 18 118/69 95 11/09/18 11:04 11/09/18 11:04 11/09/18 11:04 11/09/18 11:04 11/09/18 11:04 General appearance: Present: no acute distress Results - Labs CBC & Chem 7: 11/08/18 21:00 11/08/18 21:00 Labs: Laboratory Last Values WBC 7.6 K/mm3 (4.5-11.0) 11/08/18 21:00 RBC 4.23 M/mm3 (3.65-5.03) 11/08/18 21:00 Hgb 13.5 gm/dl (11.8-15.2) 11/08/18 21:00 Hct 39.5 % (35.5-45.6) 11/08/18 21:00 MCV 94 fl (84-94) 11/08/18 21:00 MCH 32 pg (28-32) 11/08/18 21:00 MCHC 34 % (32-34) 11/08/18 21:00 RDW 15.3 % (13.2-15.2) H 11/08/18 21:00 Plt Count 236 K/mm3 (140-440) 11/08/18 21:00 Lymph % (Auto) 25.2 % (13.4-35.0) 11/08/18 21:00 [place] % (Auto) 7.0 % (0.0-7.3) 11/08/18 21:00 Eos % (Auto) 1.4 % (0.0-4.3) 11/08/18 21:00 Baso % (Auto) 0.8 % (0.0-1.8) 11/08/18 21:00 Lymph # 1.9 K/mm3 (1.2-5.4) 11/08/18 21:00 [place] # 0.5 K/mm3 (0.0-0.8) 11/08/18 21:00 Eos # 0.1 K/mm3 (0.0-0.4) 11/08/18 21:00 Baso # 0.1 K/mm3 (0.0-0.1) 11/08/18 21:00 Seg Neutrophils % 65.6 % (40.0-70.0) 11/08/18 21:00 Seg Neutrophils # 5.0 K/mm3 (1.8-7.7) 11/08/18 21:00 PT 13.6 Sec. (12.2-14.9) 11/08/18 21:00 INR 0.98 (0.87-1.13) 11/08/18 21:00 APTT 25.8 Sec. (24.2-36.6) 11/08/18 21:00 Sodium 141 mmol/L (137-145) 11/08/18 21:00 Potassium 4.3 mmol/L (3.6-5.0) 11/08/18 21:00 Chloride 105.3 mmol/L (98-107) 11/08/18 21:00 Carbon Dioxide 28 mmol/L (22-30) 11/08/18 21:00 12 mmol/L 11/08/18 21:00 BUN 13 mg/dL (9-20) 11/08/18 21:00 0.9 mg/dL (0.8-1.5) 11/08/18 21:00 Estimated GFR > 60 ml/min 11/08/18 21:00 14 % 11/08/18 21:00 Glucose 106 mg/dL (75-100) H 11/08/18 21:00 5.6 % (4-6) 11/09/18 01:26 Calcium 10.1 mg/dL (8.4-10.2) 11/08/18 21:00 0.40 mg/dL (0.1-1.2) 11/08/18 21:00 AST 25 units/L (5-40) 11/08/18 21:00 ALT 16 units/L (7-56) 11/08/18 21:00 67 units/L (35-129) 11/08/18 21:00 284 units/L (55-170) H 11/09/18 11:01 CK-MB (CK-2) 15.9 ng/mL (0.0-4.0) H 11/09/18 11:01 CK-MB (CK-2) Rel Index 5.5 (0-4) H 11/09/18 11:01 0.328 ng/mL (0.00-0.029) H* 11/09/18 11:01 NT-Pro-B Natriuret Pep 102.5 pg/mL (0-900) 11/08/18 21:00 7.1 g/dL (6.3-8.2) 11/08/18 21:00 4.1 g/dL (3.9-5) 11/08/18 21:00 1.4 % 11/08/18 21:00 Triglycerides 105 mg/dL (2-149) 11/08/18 21:00 Cholesterol 152 mg/dL (50-199) 11/08/18 21:00 78 mg/dL (50-130) 11/08/18 21:00 68 mg/dL (40-59) H 11/08/18 21:00 2.23 % 11/08/18 21:00 Presumptive negative 11/09/18 00:55 Presumptive negative 11/09/18 00:55 Ur Barbiturates Screen Presumptive negative 11/09/18 00:55 Ur Phencyclidine Scrn Presumptive negative 11/09/18 00:55 Ur Amphetamines Screen Presumptive negative 11/09/18 00:55 U Benzodiazepines Scrn Presumptive negative 11/09/18 00:55 Presumptive negative 11/09/18 00:55 U Marijuana (THC) Screen Presumptive positive 11/09/18 00:55 Disclamer 11/09/18 00:55 Active Medications - Current Medications Current Medications: Generic Name Dose Route Start Last Admin Trade Name Freq PRN Reason Stop Dose Admin Acetaminophen 650 mg 11/09/18 00:35 Tylenol PO Q4H PRN Pain MILD(1-3)/Fever >100.5/FLORES Albuterol 2.5 mg 11/09/18 01:55 Proventil IH Q4HRT PRN Shortness Of Breath Aspirin 325 mg 11/09/18 10:00 11/09/18 09:34 Ecotrin PO 325 mg QDAY KOLE Administration Atorvastatin Calcium 40 mg 11/09/18 22:00 Lipitor PO QHS KOLE Carvedilol 6.25 mg 11/09/18 10:00 11/09/18 11:24 Coreg PO 6.25 mg BID KOLE Administration Enoxaparin Sodium 80 mg 11/09/18 11:30 11/09/18 11:23 Lovenox SUB-Q 80 mg BID KOLE Administration Hydralazine HCl 10 mg 11/09/18 02:16 Apresoline IV Q4HR PRN Blood Pressure Hydromorphone HCl 0.5 mg 11/09/18 00:37 Dilaudid IV 11/10/18 23:59 Q3H PRN Pain , Severe (7-10) Isosorbide Mononitrate 30 mg 11/09/18 10:00 11/09/18 09:34 Imdur PO 30 mg DAILY KOLE Administration Lisinopril 40 mg 11/09/18 10:00 11/09/18 09:34 Zestril PO 40 mg DAILY KOLE Administration Morphine Sulfate 2 mg 11/09/18 00:35 Morphine IV 11/10/18 23:59 Q4H PRN Pain, Moderate (4-6) Nicotine 14 mg 11/09/18 10:00 11/09/18 09:33 Habitrol TD 14 mg QDAY KOLE Administration Nitroglycerin 0.4 mg 11/09/18 00:37 Nitrostat SL .Q5MIN PRN Chest Pain Ondansetron HCl 4 mg 11/09/18 00:35 Zofran IV Q8H PRN Nausea And Vomiting Sodium Chloride 10 ml 11/09/18 10:00 11/09/18 09:34 Sodium Chloride Flush Syringe 10 Ml IV 10 ml BID KOLE Administration Sodium Chloride 10 ml 11/09/18 00:35 Sodium Chloride Flush Syringe 10 Ml IV PRN PRN LINE FLUSH
[2018-11-09] MEDS ORDERED: HEPARIN/NS 5000 UNIT/500ML(CATH LAB) 1,000 ML IR ONE (16:10)
[2018-11-09] MEDS ORDERED: NITROGLYCERIN SYRINGE 3 ML ONE (16:11)
[2018-11-09] MEDS ORDERED: CALAN ONE (16:11)
[2018-11-09] MEDS ORDERED: NACL 0.9% 500 ML 500 ML ONE (16:26)
[2018-11-09] MEDS: VERSED ONE ×2 (16:34→16:40)
[2018-11-09] MEDS: SUBLIMAZE ONE ×2 (16:34→16:40)
[2018-11-09] MEDS: XYLOCAINE 2% INFILTRATI ONE ×2 (16:38→16:41)
[2018-11-09] MEDS: HEPARIN 10,000 UNITS/10 ML ONE ×2 (16:38→17:00)
[2018-11-09] MEDS ORDERED: HEPARIN 10,000 UNITS/10 ML ONE (17:30)
[2018-11-09] MEDS ORDERED: PLAVIX ONE (17:30)
[2018-11-09] MEDS ORDERED: ALUM-MAG HYDROX-SIMETH 200-200-20MG/5ML ONE (17:31)
--- NOTE | 2018-11-09 17:45 | Event Note ---
Date: 11/09/18 Cardiac cath completed with adhoc PCI of 100% occluded distal circumflex. Excellent result at treated site. 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
[2018-11-09] MEDS ORDERED: NACL 0.9% 1000 ML 1,000 ML IV SCH (18:00)
--- NOTE | 2018-11-09 18:28 | Cardiac Catherization Report ---
REASON FOR PROCEDURE: The patient is a 58-year-old man with coronary artery disease, prior coronary stents, who presents with acute coronary syndrome, non-ST elevation myocardial infarction with elevated troponin levels. Urgent cardiac catheterization was recommended. PROCEDURES: 1. Left heart catheterization. 2. Selective left and right coronary angiography. 3. Left ventricle angiography. 4. Sedation time: Start 1634, end 1722 hours. DESCRIPTION OF PROCEDURE: The patient was prepped and draped in a sterile fashion after informed consent. An initial attempt at catheterization via the right radial approach was unsuccessful, after successful cannulation and sheath placement in the artery, catheter could not be advanced due to significant vessel spasm. We then abandoned the radial approach, and turned our attention to the right femoral artery, which was entered again using Seldinger technique followed by placement of a 6-Faroese sheath. Selective left and right coronary angiography was performed using a #3.5 left Cristino and a #4 right Cristino. The pigtail catheter was used for left ventricle angiography. The angiograms were reviewed. CORONARY ANGIOGRAPHY: Left main coronary artery was free of significant disease. The left anterior descending artery contained mild luminal irregularities in its proximal segment. There was an eccentric, 50-70% stenosis of the mid LAD. The diagonal branches contained mild diffuse irregularities. There was a long 50-70% stenosis of the proximal circumflex extending from its ostium. Following this, a stent was visible in the proximal circumflex, which was patent. The circumflex then terminated in a large distal obtuse marginal. There was complete occlusion of the distal segment of the circumflex, within another previously stented segment. This occlusion had the appearance of an occlusive restenosis. This was likely the infarct-related lesion. The right coronary artery was a small caliber system, completely occluded at its ostium, with faint collateralization from the left coronary system. This occlusion was described on a previous cardiac catheterization in 2009. CORONARY ANGIOPLASTY: Ad hoc coronary intervention to the distal circumflex occlusion was recommended. This was identified as the infarct related lesion. We selected a #3.5 XB guiding catheter and advanced to the left coronary ostium. A 0.014 inch Sys Dir 50 guidewire was introduced, successfully penetrating the occluded vessel. Following wire placement, a 2.5 mm balloon catheter was used to dilate the lesional segment. Following this, we deployed a 2.75 x 18 mm drug-eluting stent, covering the entire lesional segment, and deployed the stent to optimal pressures. A 3.0 noncompliant balloon was then used to further inflated the post-stent deployment. Following stenting and post-dilatation angioplasty as described, there was an excellent angiographic result, adventist of PATY 3 flow distally. Procedure was well tolerated by the patient and there were no complications. No intervention was performed to the borderline severity disease of the proximal circumflex. The catheters and the wires were removed, sheath removed and hemostasis achieved using an Angio-Seal device. The patient was returned to the post-procedure unit in stable condition. There were no complications. CONCLUSION: 1. Acute coronary syndrome, non-ST elevation myocardial infarction. 2. Multivessel coronary artery disease. 3. A 100% occlusion of the distal circumflex within the previous stent is the infarct-related lesion. 4. Successful angioplasty and stenting with excellent angiographic result using a 2.75 mm drug-eluting stent, postdilated with a 3.0 mm balloon. 5. Borderline stenosis of the ostium of the circumflex and the mid left anterior descending artery will be treated aggressively with medications and risk factor modification and serial stress testing. 6. Left ventricular systolic function was well preserved on left ventricular angiography, ejection fraction greater than 55%. JOB# [id number] AMBREEN/NEVA
[2018-11-10] MEDS: MORPHINE IV PRN ×2 (00:05→09:28)
[2018-11-10 06:05] LABS: Basophils % (Auto) 0.5 % (0.0-1.8); Eosinophils # (Auto) 0.1 K/mm3 (0.0-0.4); Eosinophils % (Auto) 1.1 % (0.0-4.3); Hematocrit 38.9 % (35.5-45.6); Hemoglobin 12.9 gm/dl (11.8-15.2); Lymphocytes # (Auto) 1.5 K/mm3 (1.2-5.4); Lymphocytes % (Auto) 20.9 % (13.4-35.0); Mean Corpuscular HGB Conc 33 % (32-34); Mean Corpuscular Volume 94 fl (84-94); Monocytes # (Auto) 0.4 K/mm3 (0.0-0.8); Monocytes % (Auto) 6.2 % (0.0-7.3); Platelet Count 233 K/mm3 (140-440); Red Blood Count 4.12 M/mm3 (3.65-5.03); Red Cell Distribution Width 15.5 % (13.2-15.2)
[2018-11-10 06:30] LABS: BUN/Creatinine Ratio 13; Blood Urea Nitrogen 10 mg/dL (9-20); Calcium 8.6 mg/dL (8.4-10.2); Hemolysis Index 2
--- NOTE | 2018-11-10 09:18 | XRay Report ---
PROCEDURE: XR CHEST 1V AP TECHNIQUE: Chest radiograph single view. HISTORY: post pci COMPARISONS: Chest x-ray November 08, 2018 . FINDINGS: Heart: Heart size normal. Mediastinum/Vessels: Trachea midline. Mediastinal contour stable. Lungs/Pleural space: Normal. Bony thorax: No acute osseous abnormality. Life support devices: None. IMPRESSION: No acute cardiopulmonary abnormality. This document is electronically signed by Nilton Short MD., November 10 2018 09:16:47 AM ET
[2018-11-10] MEDS: ECOTRIN PO SCH (09:26)
[2018-11-10] MEDS: ZESTRIL PO SCH (09:27)
[2018-11-10] MEDS: IMDUR PO SCH (09:27)
[2018-11-10] MEDS: COREG PO SCH ×2 (09:27→22:50)
[2018-11-10] MEDS: LOVENOX SUB-Q SCH ×2 (09:27→22:50)
[2018-11-10] MEDS: PLAVIX PO SCH (09:27)
[2018-11-10] MEDS: SODIUM CHLORIDE FLUSH SYRINGE 10 ML IV SCH ×2 (09:28→22:50)
[2018-11-10] MEDS: HABITROL TD SCH (09:28)
--- NOTE | 2018-11-10 12:38 | Discharge Summary ---
Providers - Providers Date of Admission: 11/09/18 00:35 Date of discharge: 11/12/18 Attending physician: REYNOLD JACOME 11/09/18 Consult to Cardiac Rehabilitation [CONS] Routine Reason For Exam: Phase 1 Consult to Cardiac Rehabilitation [CONS] Routine Reason For Exam: post pci 11/09/18 00:36 Consult to Cardiology [CONS] Routine Consulting Provider: GIANNI LARES Reason For Exam: elevated troponin, s/p stent [facility] Condition: Stable Hospital course: Patient is a 58 yo man with a history of hypertension, dyslipidemia, CAD s/p shent and tobacco dependency who presented to [facility] ED with chest pains. * 11/09/18 Left heart Cardiac cath completed with adhoc PCI of 100% occluded distal circumflex. Excellent result at treated site. 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 NSTEMI, s/p PCI distal circumflex: Cardiology is following Coronary artery disease s/p PCI to LAD and Cx in 2009 and known occluded RCA: asa/statin/coreg Acute diastolic heart failure, poa: treat the AMI Tobacco use/marijuana use: career development counselor on stopping. Nicotine patch offered Hyperlipidemia: treat with statin Non-compliance: counseling done Hypertensive urgency: iv antihypertensives prn Disposition: DC-01 TO HOME OR SELFCARE Time spent for discharge: 34 minutes Core Measure Documentation - Palliative Care Palliative Care/ Comfort Measures: Not Applicable - Core Measures Any of the following diagnoses?: acute AK - VTE Discharge Requirements Deep Vein Thrombosis/Pulmonary Embolism Present on Admission: No Has pt received <5 days of overlap therapy or INR<2.0: No Anticoagulant overlap therapy prescribed at discharge: No Contraindication No Overlap Therapy order at DC: Not Indicated - Acute AK Discharge Requirements Aspirin at discharge: Yes YULISSA/ARB for LVSD if EF <40%: Yes Beta nadia at discharge: Yes Statin for LDL = or >100 mg/dl on DC: Yes Exam - Physical Exam Narrative exam: Gen: WDWN, NAD, Awake, Alert, Orientated HEENT: NCAT, EOMI, PERRL, OP Clear Neck: supple, no adenopathy, no thyromegaly, no JVD CVS/Heart: RRR, normal S1S2, pulses present bilaterally Chest/Lungs: CTA B, Symmetrical chest expansion, good air entry bilaterally GI/Abdomen: soft, NTND, good bowel sounds, no guarding or rebound /Bladder: no suprapubic tenderness, no CVA or paraspinal tenderness Extermity/Skin: no c/c/e, no obvious rash MSK: FROM x 4 Neuro: CN 2-12 grossly intact, no new focal deficits Psych: calm - Constitutional Vitals: Temp Pulse Resp BP Pulse Ox 98.2 F 72 18 147/84 100 11/10/18 11:13 11/10/18 11:13 11/10/18 11:13 11/10/18 11:13 11/10/18 11:13 Plan Activity: other (no strenous activity including sex unless cleared by [employer]) Diet: low salt Follow up with: ARMANDO HOWARD MD [Primary Care Provider] - 3-5 Days GIANNI LARES MD [Staff Physician] - 7 Days Prescriptions: AtorvaSTATin [Lipitor] 40 mg PO QHS #30 tablet Aspirin EC 325 mg PO QDAY #30 tablet Carvedilol [Coreg] 6.25 mg PO BID #60 tablet Nicotine [Habitrol] 14 mg TD QDAY #14 patch ISOSORBIDE MONOnitrate [Imdur ER] 30 mg PO DAILY #30 tablet Clopidogrel [Plavix] 75 mg PO QDAY #30 tablet Lisinopril [Zestril TAB] 40 mg PO DAILY #30 tablet
--- NOTE | 2018-11-10 12:47 | Progress Note ---
Assessment and Plan Assessment and plan: Patient is a 58 yo man with a history of hypertension, dyslipidemia, CAD s/p shent and tobacco dependency who presented to [facility] ED with chest pains. 11/09/18 Left heart Cardiac cath completed with adhoc PCI of 100% occluded distal circumflex. Excellent result at treated site. Stenosis of borderline shani rity of mid LAD will be managed conservatively, medical therapy and aggressive RF modification. NSTEMI, Inferior Q waves on ECG: [facility] pending, Cardiology is following, continue therapeutic A/C, on therapeutic Lovenox Coronary artery disease s/p PCI to LAD and Cx in 2009 and known occluded RCA: asa/statin/coreg Acute diastolic heart failure, poa: treat the AMI Tobacco use/marijuana use: licensed mental health counselor on stopping. Nicotine patch offered Hyperlipidemia: treat with statin Non-compliance: counseling done Hypertensive urgency: iv antihypertensives prn d/c once cleared by Cardiology History Interval history: Patient was seen and examined. Follow-up on current diagnosis NSTEMI, still had intermittent Chest pains this morning. No overnight events reported to me. Patient denies any shortness breath, nausea/vomiting or severe headaches. Imaging, nursing note, chart, labs and old chart reviewed. Discussed with patient. Hospitalist Physical - Physical exam Narrative exam: Gen: WDWN, NAD, Awake, Alert, Orientated HEENT: NCAT, EOMI, PERRL, OP Clear Neck: supple, no adenopathy, no thyromegaly, no JVD CVS/Heart: RRR, normal S1S2, pulses present bilaterally Chest/Lungs: CTA B, Symmetrical chest expansion, good air entry bilaterally GI/Abdomen: soft, NTND, good bowel sounds, no guarding or rebound /Bladder: no suprapubic tenderness, no CVA or paraspinal tenderness Extermity/Skin: no c/c/e, no obvious rash MSK: FROM x 4 Neuro: CN 2-12 grossly intact, no new focal deficits Psych: calm - Constitutional Vitals: Temp Pulse Resp BP Pulse Ox 98.2 F 72 18 147/84 100 11/10/18 11:13 11/10/18 11:13 11/10/18 11:13 11/10/18 11:13 11/10/18 11:13 General appearance: Present: no acute distress Results - Labs CBC & Chem 7: 11/10/18 05:29 06/08/19 05:29 Labs: Laboratory Last Values WBC 7.0 K/mm3 (4.5-11.0) 11/10/18 05:29 RBC 4.12 M/mm3 (3.65-5.03) 11/10/18 05:29 Hgb 12.9 gm/dl (11.8-15.2) 11/10/18 05:29 Hct 38.9 % (35.5-45.6) 11/10/18 05:29 MCV 94 fl (84-94) 11/10/18 05:29 MCH 31 pg (28-32) 11/10/18 05:29 MCHC 33 % (32-34) 11/10/18 05:29 RDW 15.5 % (13.2-15.2) H 11/10/18 05:29 Plt Count 233 K/mm3 (140-440) 11/10/18 05:29 Lymph % (Auto) 20.9 % (13.4-35.0) 11/10/18 05:29 [place] % (Auto) 6.2 % (0.0-7.3) 11/10/18 05:29 Eos % (Auto) 1.1 % (0.0-4.3) 11/10/18 05:29 Baso % (Auto) 0.5 % (0.0-1.8) 11/10/18 05:29 Lymph # 1.5 K/mm3 (1.2-5.4) 11/10/18 05:29 [place] # 0.4 K/mm3 (0.0-0.8) 11/10/18 05:29 Eos # 0.1 K/mm3 (0.0-0.4) 11/10/18 05:29 Baso # 0.0 K/mm3 (0.0-0.1) 11/10/18 05:29 Seg Neutrophils % 71.3 % (40.0-70.0) H 11/10/18 05:29 Seg Neutrophils # 5.0 K/mm3 (1.8-7.7) 11/10/18 05:29 PT 13.6 Sec. (12.2-14.9) 11/08/18 21:00 INR 0.98 (0.87-1.13) 11/08/18 21:00 APTT 25.8 Sec. (24.2-36.6) 11/08/18 21:00 Sodium 139 mmol/L (137-145) 11/10/18 05:29 Potassium 4.3 mmol/L (3.6-5.0) 11/10/18 05:29 Chloride 105.1 mmol/L (98-107) 11/10/18 05:29 Carbon Dioxide 24 mmol/L (22-30) 11/10/18 05:29 14 mmol/L 11/10/18 05:29 BUN 10 mg/dL (9-20) 11/10/18 05:29 0.8 mg/dL (0.8-1.5) 11/10/18 05:29 Estimated GFR > 60 ml/min 11/10/18 05:29 13 % 11/10/18 05:29 Glucose 119 mg/dL (75-100) H 11/10/18 05:29 POC Glucose 93 (70-105) 11/10/18 07:36 5.6 % (4-6) 11/09/18 01:26 Calcium 8.6 mg/dL (8.4-10.2) 11/10/18 05:29 0.40 mg/dL (0.1-1.2) 11/08/18 21:00 AST 25 units/L (5-40) 11/08/18 21:00 ALT 16 units/L (7-56) 11/08/18 21:00 67 units/L (35-129) 11/08/18 21:00 185 units/L (55-170) H 11/10/18 05:29 CK-MB (CK-2) 9.0 ng/mL (0.0-4.0) H 11/10/18 05:29 CK-MB (CK-2) Rel Index 4.8 (0-4) H 11/10/18 05:29 0.358 ng/mL (0.00-0.029) H* 11/10/18 05:29 NT-Pro-B Natriuret Pep 102.5 pg/mL (0-900) 11/08/18 21:00 7.1 g/dL (6.3-8.2) 11/08/18 21:00 4.1 g/dL (3.9-5) 11/08/18 21:00 1.4 % 11/08/18 21:00 Triglycerides 105 mg/dL (2-149) 11/08/18 21:00 Cholesterol 152 mg/dL (50-199) 11/08/18 21:00 78 mg/dL (50-130) 11/08/18 21:00 68 mg/dL (40-59) H 11/08/18 21:00 2.23 % 11/08/18 21:00 Presumptive negative 11/09/18 00:55 Presumptive negative 11/09/18 00:55 Ur Barbiturates Screen Presumptive negative 11/09/18 00:55 Ur Phencyclidine Scrn Presumptive negative 11/09/18 00:55 Ur Amphetamines Screen Presumptive negative 11/09/18 00:55 U Benzodiazepines Scrn Presumptive negative 11/09/18 00:55 Presumptive negative 11/09/18 00:55 U Marijuana (THC) Screen Presumptive positive 11/09/18 00:55 Disclamer 11/09/18 00:55 Active Medications - Current Medications Current Medications: Generic Name Dose Route Start Last Admin Trade Name Freq PRN Reason Stop Dose Admin Acetaminophen 650 mg 11/09/18 00:35 11/09/18 19:55 Tylenol PO 650 mg Q4H PRN Administration Pain MILD(1-3)/Fever >100.5/FLORES Albuterol 2.5 mg 11/09/18 01:55 Proventil IH Q4HRT PRN Shortness Of Breath Aspirin 325 mg 11/09/18 10:00 11/10/18 09:26 Ecotrin PO 325 mg QDAY KOLE Administration Atorvastatin Calcium 40 mg 11/09/18 22:00 11/09/18 21:57 Lipitor PO 40 mg QHS KOLE Administration Carvedilol 6.25 mg 11/09/18 10:00 11/10/18 09:27 Coreg PO 6.25 mg BID KOLE Administration Clopidogrel Bisulfate 75 mg 11/10/18 10:00 11/10/18 09:27 Plavix PO 75 mg QDAY KOLE Administration Enoxaparin Sodium 80 mg 11/09/18 11:30 11/10/18 09:27 Lovenox SUB-Q 80 mg BID KOLE Administration Hydralazine HCl 10 mg 11/09/18 02:16 Apresoline IV Q4HR PRN Blood Pressure Hydromorphone HCl 0.5 mg 11/09/18 00:37 11/10/18 02:09 Dilaudid IV 11/10/18 23:59 0.5 mg Q3H PRN Administration Pain , Severe (7-10) Isosorbide Mononitrate 30 mg 11/09/18 10:00 11/10/18 09:27 Imdur PO 30 mg DAILY KOLE Administration Lisinopril 40 mg 11/09/18 10:00 11/10/18 09:27 Zestril PO 40 mg DAILY KOLE Administration Morphine Sulfate 2 mg 11/09/18 00:35 11/10/18 09:28 Morphine IV 11/10/18 23:59 2 mg Q4H PRN Administration Pain, Moderate (4-6) Nicotine 14 mg 11/09/18 10:00 11/10/18 09:28 Habitrol TD 14 mg QDAY KOLE Administration Nitroglycerin 0.4 mg 11/09/18 00:37 Nitrostat SL .Q5MIN PRN Chest Pain Ondansetron HCl 4 mg 11/09/18 00:35 Zofran IV Q8H PRN Nausea And Vomiting Sodium Chloride 10 ml 11/09/18 10:00 11/10/18 09:28 Sodium Chloride Flush Syringe 10 Ml IV 10 ml BID KOLE Administration Sodium Chloride 10 ml 11/09/18 00:35 Sodium Chloride Flush Syringe 10 Ml IV PRN PRN LINE FLUSH
--- NOTE | 2018-11-10 13:09 | Progress Note ---
Assessment and Plan - Patient Problems (1) NSTEMI (non-ST elevated myocardial infarction) Current Visit: Yes Status: Acute Plan to address problem: Patient is status post angioplasty and stenting of the distal circumflex following a non-ST elevation myocardial infarction. There are lesions of borderline severity of the ostium of the circumflex and the mid segment of the LAD, recommended for medical therapy and aggressive risk factor modification. I have extensively discussed with the patient didn't need to discontinue tobacco abuse, and maintain strict compliance with medical therapy including his dual oral antiplatelet therapy. We will encourage ambulation today, and plan discharge tomorrow or Monday. Subjective Date of service: 11/10/18 Interval history: The patient is comfortable, no new cardiac complaints. No cardiac cath complications. Objective Vital Signs Temp Pulse Resp BP BP Pulse Ox 11/10/18 11:13 98.2 F 72 18 147/84 100 11/10/18 11:08 96 11/10/18 07:32 98.2 F 72 18 140/94 94 11/10/18 04:23 98.0 F 68 18 108/69 99 11/09/18 23:49 98.0 F 72 18 122/72 98 11/09/18 20:08 67 11/09/18 19:37 98.0 F 67 18 118/65 98 11/09/18 18:35 97.1 F L 69 18 114/71 97 - Physical Examination General: No Apparent Distress HEENT: Positive: PERRL Neck: Positive: neck supple Cardiac: Positive: Reg Rate and Rhythm Lungs: Positive: Decreased Breath Sounds Neuro: Positive: Grossly Intact Abdomen: Positive: Soft Skin: Positive: Clear Extremities: Absent: edema - Labs and Meds Cardiac Enzymes 11/10/18 Range/Units 05:29 CK-MB (CK-2) 9.0 H (0.0-4.0) ng/mL CBC 11/10/18 Range/Units 05:29 WBC 7.0 (4.5-11.0) K/mm3 RBC 4.12 (3.65-5.03) M/mm3 Hgb 12.9 (11.8-15.2) gm/dl Hct 38.9 (35.5-45.6) % Plt Count 233 (140-440) K/mm3 Lymph # 1.5 (1.2-5.4) K/mm3 [place] # 0.4 (0.0-0.8) K/mm3 Eos # 0.1 (0.0-0.4) K/mm3 Baso # 0.0 (0.0-0.1) K/mm3 Comprehensive Metabolic Panel 11/10/18 Range/Units 05:29 Sodium 139 (137-145) mmol/L Potassium 4.3 (3.6-5.0) mmol/L Chloride 105.1 (98-107) mmol/L Carbon Dioxide 24 (22-30) mmol/L BUN 10 (9-20) mg/dL Creatinine 0.8 (0.8-1.5) mg/dL Glucose 119 H (75-100) mg/dL Calcium 8.6 (8.4-10.2) mg/dL - Imaging and Cardiology EKG: image reviewed (68 bpm, nonspecific ST changes)
[2018-11-10] MEDS: NORCO 5/325 PO PRN ×3 (14:07→23:26)
[2018-11-11] MEDS: PLAVIX PO SCH (10:53)
[2018-11-11] MEDS: IMDUR PO SCH (10:54)
[2018-11-11] MEDS: COREG PO SCH ×2 (10:54→22:50)
[2018-11-11] MEDS: ZESTRIL PO SCH (10:54)
[2018-11-11] MEDS: HABITROL TD SCH (10:54)
[2018-11-11] MEDS: LOVENOX SUB-Q SCH ×2 (10:54→22:50)
[2018-11-11] MEDS: ECOTRIN PO SCH (10:54)
[2018-11-11] MEDS: SODIUM CHLORIDE FLUSH SYRINGE 10 ML IV SCH ×2 (10:55→22:50)
--- NOTE | 2018-11-11 11:46 | Progress Note ---
Assessment and Plan Assessment and plan: Patient is a 58 yo man with a history of hypertension, dyslipidemia, CAD s/p shent and tobacco dependency who presented to [facility] ED with chest pains. 11/09/18 Left heart Cardiac cath completed with adhoc PCI of 100% occluded distal circumflex. Excellent result at treated site. Stenosis of borderline shani rity of mid LAD will be managed conservatively, medical therapy and aggressive RF modification. NSTEMI, s/p PCI distal circumflex: Cardiology is following Coronary artery disease s/p PCI to LAD and Cx in 2009 and known occluded RCA: asa/statin/coreg Acute diastolic heart failure, poa: treat the AMI Tobacco use/marijuana use: college admissions counselor on stopping. Nicotine patch offered Hyperlipidemia: treat with statin Non-compliance: counseling done Hypertensive urgency: iv antihypertensives prn d/c once cleared by Cardiology, ECHO pending History Interval history: Patient was seen and examined. Follow-up on current diagnosis NSTEMI, still had intermittent Chest pains this morning. No overnight events reported to me. Patient denies any shortness breath, nausea/vomiting or severe headaches. Imaging, nursing note, chart, labs and old chart reviewed. Discussed with patient. Hospitalist Physical - Physical exam Narrative exam: Gen: WDWN, NAD, Awake, Alert, Orientated HEENT: NCAT, EOMI, PERRL, OP Clear Neck: supple, no adenopathy, no thyromegaly, no JVD CVS/Heart: RRR, normal S1S2, pulses present bilaterally Chest/Lungs: CTA B, Symmetrical chest expansion, good air entry bilaterally GI/Abdomen: soft, NTND, good bowel sounds, no guarding or rebound /Bladder: no suprapubic tenderness, no CVA or paraspinal tenderness Extermity/Skin: no c/c/e, no obvious rash MSK: FROM x 4 Neuro: CN 2-12 grossly intact, no new focal deficits Psych: calm - Constitutional Vitals: Temp Pulse Resp BP Pulse Ox 98.2 F 73 18 170/99 97 11/11/18 11:15 11/11/18 11:15 11/11/18 11:15 11/11/18 11:15 11/11/18 11:15 General appearance: Present: no acute distress Results - Labs CBC & Chem 7: 11/10/18 05:29 11/10/18 05:29 Labs: Laboratory Last Values WBC 7.0 K/mm3 (4.5-11.0) 11/10/18 05:29 RBC 4.12 M/mm3 (3.65-5.03) 11/10/18 05:29 Hgb 12.9 gm/dl (11.8-15.2) 11/10/18 05:29 Hct 38.9 % (35.5-45.6) 11/10/18 05:29 MCV 94 fl (84-94) 11/10/18 05:29 MCH 31 pg (28-32) 11/10/18 05:29 MCHC 33 % (32-34) 11/10/18 05:29 RDW 15.5 % (13.2-15.2) H 11/10/18 05:29 Plt Count 233 K/mm3 (140-440) 11/10/18 05:29 Lymph % (Auto) 20.9 % (13.4-35.0) 11/10/18 05:29 [place] % (Auto) 6.2 % (0.0-7.3) 11/10/18 05:29 Eos % (Auto) 1.1 % (0.0-4.3) 11/10/18 05:29 Baso % (Auto) 0.5 % (0.0-1.8) 11/10/18 05:29 Lymph # 1.5 K/mm3 (1.2-5.4) 11/10/18 05:29 [place] # 0.4 K/mm3 (0.0-0.8) 11/10/18 05:29 Eos # 0.1 K/mm3 (0.0-0.4) 11/10/18 05:29 Baso # 0.0 K/mm3 (0.0-0.1) 11/10/18 05:29 Seg Neutrophils % 71.3 % (40.0-70.0) H 11/10/18 05:29 Seg Neutrophils # 5.0 K/mm3 (1.8-7.7) 11/10/18 05:29 PT 13.6 Sec. (12.2-14.9) 11/08/18 21:00 INR 0.98 (0.87-1.13) 11/08/18 21:00 APTT 25.8 Sec. (24.2-36.6) 11/08/18 21:00 Sodium 139 mmol/L (137-145) 11/10/18 05:29 Potassium 4.3 mmol/L (3.6-5.0) 11/10/18 05:29 Chloride 105.1 mmol/L (98-107) 11/10/18 05:29 Carbon Dioxide 24 mmol/L (22-30) 11/10/18 05:29 14 mmol/L 11/10/18 05:29 BUN 10 mg/dL (9-20) 11/10/18 05:29 0.8 mg/dL (0.8-1.5) 11/10/18 05:29 Estimated GFR > 60 ml/min 11/10/18 05:29 13 % 11/10/18 05:29 Glucose 119 mg/dL (75-100) H 11/10/18 05:29 POC Glucose 93 (70-105) 11/10/18 07:36 5.6 % (4-6) 11/09/18 01:26 Calcium 8.6 mg/dL (8.4-10.2) 11/10/18 05:29 0.40 mg/dL (0.1-1.2) 11/08/18 21:00 AST 25 units/L (5-40) 11/08/18 21:00 ALT 16 units/L (7-56) 11/08/18 21:00 67 units/L (35-129) 11/08/18 21:00 185 units/L (55-170) H 11/10/18 05:29 CK-MB (CK-2) 9.0 ng/mL (0.0-4.0) H 11/10/18 05:29 CK-MB (CK-2) Rel Index 4.8 (0-4) H 11/10/18 05:29 0.358 ng/mL (0.00-0.029) H* 11/10/18 05:29 NT-Pro-B Natriuret Pep 102.5 pg/mL (0-900) 11/08/18 21:00 7.1 g/dL (6.3-8.2) 11/08/18 21:00 4.1 g/dL (3.9-5) 11/08/18 21:00 1.4 % 11/08/18 21:00 Triglycerides 105 mg/dL (2-149) 11/08/18 21:00 Cholesterol 152 mg/dL (50-199) 11/08/18 21:00 78 mg/dL (50-130) 11/08/18 21:00 68 mg/dL (40-59) H 11/08/18 21:00 2.23 % 11/08/18 21:00 Presumptive negative 11/09/18 00:55 Presumptive negative 11/09/18 00:55 Ur Barbiturates Screen Presumptive negative 11/09/18 00:55 Ur Phencyclidine Scrn Presumptive negative 11/09/18 00:55 Ur Amphetamines Screen Presumptive negative 11/09/18 00:55 U Benzodiazepines Scrn Presumptive negative 11/09/18 00:55 Presumptive negative 11/09/18 00:55 U Marijuana (THC) Screen Presumptive positive 11/09/18 00:55 Disclamer 11/09/18 00:55 Active Medications - Current Medications Current Medications: Generic Name Dose Route Start Last Admin Trade Name Freq PRN Reason Stop Dose Admin Acetaminophen 650 mg 11/09/18 00:35 11/09/18 19:55 Tylenol PO 650 mg Q4H PRN Administration Pain MILD(1-3)/Fever >100.5/FLORES Acetaminophen/Hydrocodone [place] 1 each 11/10/18 12:46 11/10/18 23:26 [place] 5/325 PO 1 each Q4H PRN Administration Pain, Moderate (4-6) Albuterol 2.5 mg 11/09/18 01:55 Proventil IH Q4HRT PRN Shortness Of Breath Aspirin 325 mg 11/09/18 10:00 11/11/18 10:54 Ecotrin PO 325 mg QDAY KOLE Administration Atorvastatin Calcium 40 mg 11/09/18 22:00 11/10/18 22:50 Lipitor PO 40 mg QHS KOLE Administration Carvedilol 6.25 mg 11/09/18 10:00 11/11/18 10:54 Coreg PO 6.25 mg BID KOLE Administration Clopidogrel Bisulfate 75 mg 11/10/18 10:00 11/11/18 10:53 Plavix PO 75 mg QDAY KOLE Administration Enoxaparin Sodium 80 mg 11/09/18 11:30 11/11/18 10:54 Lovenox SUB-Q 80 mg BID KOLE Administration Hydralazine HCl 10 mg 11/09/18 02:16 Apresoline IV Q4HR PRN Blood Pressure Isosorbide Mononitrate 30 mg 11/09/18 10:00 11/11/18 10:54 Imdur PO 30 mg DAILY KOLE Administration Lisinopril 40 mg 11/09/18 10:00 11/11/18 10:54 Zestril PO 40 mg DAILY KOLE Administration Nicotine 14 mg 11/09/18 10:00 11/11/18 10:54 Habitrol TD 14 mg QDAY KOLE Administration Nitroglycerin 0.4 mg 11/09/18 00:37 Nitrostat SL .Q5MIN PRN Chest Pain Ondansetron HCl 4 mg 11/09/18 00:35 Zofran IV Q8H PRN Nausea And Vomiting Sodium Chloride 10 ml 11/09/18 10:00 11/11/18 10:55 Sodium Chloride Flush Syringe 10 Ml IV 10 ml BID KOLE Administration Sodium Chloride 10 ml 11/09/18 00:35 Sodium Chloride Flush Syringe 10 Ml IV PRN PRN LINE FLUSH
[2018-11-11] MEDS: NORCO 5/325 PO PRN ×2 (13:08→23:07)
--- NOTE | 2018-11-11 13:15 | Progress Note ---
Assessment and Plan - Patient Problems (1) NSTEMI (non-ST elevated myocardial infarction) Current Visit: Yes Status: Acute Plan to address problem: Patient is status post angioplasty and stenting of the distal circumflex following a non-ST elevation myocardial infarction. There are lesions of borderline severity of the ostium of the circumflex and the mid segment of the LAD, recommended for medical therapy and aggressive risk factor modification. I have extensively discussed with the patient stressing the need to discontinue tobacco abuse, and maintain strict compliance with medical therapy including his dual oral antiplatelet therapy. We will discharge today, with outpatient follow-up recommended in 7 days. In 4-6 weeks, an exercise thallium stress test will be done for further assessment of borderline severity mid LAD stenosis. Subjective Date of service: 11/11/18 Interval history: The patient is comfortable, no new cardiac complaints. Objective Vital Signs Temp Pulse Resp BP Pulse Ox 11/11/18 11:15 98.2 F 73 18 170/99 97 11/11/18 09:06 97 11/11/18 08:02 98.4 F 75 18 157/97 97 11/11/18 04:00 81 11/10/18 22:50 81 110/65 11/10/18 22:00 18 97 11/10/18 20:00 81 11/10/18 16:15 98.3 F 68 18 110/65 97 - Physical Examination General: No Apparent Distress HEENT: Positive: PERRL Neck: Positive: neck supple Cardiac: Positive: Reg Rate and Rhythm Lungs: Positive: Decreased Breath Sounds Neuro: Positive: Grossly Intact Abdomen: Positive: Soft Skin: Positive: Clear Extremities: Absent: edema - Imaging and Cardiology EKG: image reviewed (68 bpm, nonspecific ST changes)
[2018-11-12 06:07] VITALS: BP 147/87
[2018-11-12 06:28] LABS: INR 0.96 (0.87-1.13)
[2018-11-12 06:39] LABS: BUN/Creatinine Ratio 10; Blood Urea Nitrogen 8 mg/dL (9-20); Calcium 9.8 mg/dL (8.4-10.2); Hemolysis Index 7
--- NOTE | 2018-11-12 10:56 | Progress Note ---
Assessment and Plan NSTEMI status post angioplasty and stenting of the distal circumflex. There are lesions of borderline severity of the ostium of the circumflex and the mid segment of the LAD, recommended for medical therapy and aggressive risk factor modification. Hypertension Tobacco abuse Advised tobacco cessation. Continue medical therapy for CAD including DAPT without interruption. OK for discharge home today with outpatient follow-up recommended in 7 days. In 4-6 weeks, an exercise thallium stress test will be done for further assessment of borderline severity mid LAD stenosis. Subjective Date of service: 11/12/18 Interval history: Patient denies chest pain. For discharge home today. Objective Vital Signs Temp Pulse Pulse Pulse Resp BP Pulse Ox 11/12/18 04:24 98.1 F 69 18 147/87 96 11/12/18 04:00 69 11/11/18 23:29 98.4 F 18 146/83 98 11/11/18 22:50 72 158/106 11/11/18 22:00 70 70 18 99 11/11/18 20:00 67 11/11/18 19:34 98.3 F 70 18 102/60 99 11/11/18 15:16 97.9 F 70 18 124/77 97 11/11/18 11:15 98.2 F 73 18 170/99 97 - Physical Examination General: No Apparent Distress HEENT: Positive: PERRL Neck: Positive: neck supple Cardiac: Positive: Reg Rate and Rhythm Lungs: Positive: Decreased Breath Sounds Neuro: Positive: Grossly Intact Abdomen: Positive: Soft Extremities: Absent: edema - Labs and Meds Coagulation 11/12/18 Range/Units 05:50 PT 13.4 (12.2-14.9) Sec. INR 0.96 (0.87-1.13) Comprehensive Metabolic Panel 11/12/18 Range/Units 05:50 Sodium 141 (137-145) mmol/L Potassium 4.3 (3.6-5.0) mmol/L Chloride 104.7 (98-107) mmol/L Carbon Dioxide 26 (22-30) mmol/L BUN 8 L (9-20) mg/dL Creatinine 0.8 (0.8-1.5) mg/dL Glucose 101 H (75-100) mg/dL Calcium 9.8 (8.4-10.2) mg/dL
[2018-11-12] MEDS: IMDUR PO SCH (10:57)
[2018-11-12] MEDS: ZESTRIL PO SCH (10:57)
[2018-11-12] MEDS: COREG PO SCH (10:58)
[2018-11-12] MEDS: ECOTRIN PO SCH (11:00)
[2018-11-12] MEDS: PLAVIX PO SCH (11:01)
[2018-11-12] MEDS: LOVENOX SUB-Q SCH (11:01)
[2018-11-12] MEDS: HABITROL TD SCH (11:01)
== END 2018-11-12 11:10 | disposition home or self-care (01) | DRG 246 ==
LOC: ED 20:08 → 4A 11-09 00:35
PROVIDERS: ADMIT Internal Medicine; ATTEND Internal Medicine
PROC: 027034Z Dilation of Coronary Artery, One Artery with Drug-eluting Intraluminal Device, Percutaneous Approach (ICD-10-PCS; principal; 2018-11-09)
PROC: 4A023N7 Measurement of Cardiac Sampling and Pressure, Left Heart, Percutaneous Approach (ICD-10-PCS; 2018-11-09)
PROC: B2111ZZ Fluoroscopy of Multiple Coronary Arteries using Low Osmolar Contrast (ICD-10-PCS; 2018-11-09)
PROC: B2151ZZ Fluoroscopy of Left Heart using Low Osmolar Contrast (ICD-10-PCS; 2018-11-09)
DX: T82.855A Stenosis of coronary artery stent, initial encounter (principal); I21.4 Non-ST elevation (NSTEMI) myocardial infarction; I50.31 Acute diastolic (congestive) heart failure; I16.0 Hypertensive urgency; I11.0 Hypertensive heart disease with heart failure; I25.10 Atherosclerotic heart disease of native coronary artery without angina pectoris; F17.200 Nicotine dependence, unspecified, uncomplicated; F12.90 Cannabis use, unspecified, uncomplicated; Y83.2 Surgical operation with anastomosis, bypass or graft as the cause of abnormal reaction of the patient, or of later complication, without mention of misadventure at the time of the procedure; E78.5 Hyperlipidemia, unspecified; Z95.5 Presence of coronary angioplasty implant and graft; Z71.51 Drug abuse counseling and surveillance of drug abuser; Z91.19 Patient's noncompliance with other medical treatment and regimen; Z79.82 Long term (current) use of aspirin; Z79.899 Other long term (current) drug therapy; Z87.440 Personal history of urinary (tract) infections; Z72.89 Other problems related to lifestyle; Y92.89 Other specified places as the place of occurrence of the external cause
CPT/HCPCS: 36415; 71045; 71046; 80048; 80053; 80061; 80307; 82550; 82553; 82962; 83036; 83880; 84484; 85025; 85347; 85610; 85730; 92928; 93005; 93010; 93306; 93458; 96372; G0378; A9270-GY; C1725; C1760; C1769; C1874; C1887; C1894; C9600; J1170; J1644; J1650; J2250; J2270; J3010; J7030; J7040; Q9967

== ENCOUNTER 2019-02-17 00:02 | Observation (INO) | payer SELFPAY ==
--- NOTE | 2019-02-17 00:44 | XRay Report ---
CHEST 1 VIEW INDICATION / CLINICAL INFORMATION: Chest Pain. COMPARISON: 11/10/2018 FINDINGS: SUPPORT DEVICES: None. HEART / MEDIASTINUM: No significant abnormality. LUNGS / PLEURA: No significant pulmonary or pleural abnormality.. No pneumothorax. ADDITIONAL FINDINGS: No significant additional findings. IMPRESSION: 1. No acute findings. Signer Name: Jann Hooks MD Signed: 02/17/2019 12:40 AM Workstation Name: [id number]
[2019-02-17 00:48] LABS: Basophils # (Auto) 0.1 K/mm3 (0.0-0.1); Basophils % (Auto) 1.1 % (0.0-1.8); Eosinophils # (Auto) 0.1 K/mm3 (0.0-0.4); Eosinophils % (Auto) 1.5 % (0.0-4.3); Hematocrit 38.4 % (35.5-45.6); Hemoglobin 12.8 gm/dl (11.8-15.2); Lymphocytes # (Auto) 2.1 K/mm3 (1.2-5.4); Lymphocytes % (Auto) 27.5 % (13.4-35.0); Mean Corpuscular HGB Conc 33 % (32-34); Mean Corpuscular Volume 95 fl (84-94); Monocytes # (Auto) 0.4 K/mm3 (0.0-0.8); Monocytes % (Auto) 5.3 % (0.0-7.3); Platelet Count 247 K/mm3 (140-440); Red Blood Count 4.06 M/mm3 (3.65-5.03); Red Cell Distribution Width 14.5 % (13.2-15.2)
[2019-02-17 01:23] LABS: BUN/Creatinine Ratio 21; Blood Urea Nitrogen 17 mg/dL (9-20); Calcium 9.6 mg/dL (8.4-10.2); Hemolysis Index 6
--- NOTE | 2019-02-17 02:03 | Emergency Department Report ---
ED Chest Pain HPI - General Chief Complaint: Chest Pain Stated Complaint: CHEST PAIN, FEVER Time Seen by Provider: 02/17/19 01:50 Source: patient Mode of arrival: Ambulatory Limitations: No Limitations - History of Present Illness Initial Comments: 59 yo M w/ hx CAD (3 stents total, most recent placement was 3 months ago) presents to ED requesting medication refill. Pt states he ran out of his plavix, atorvastatin, lisinopril, imdur, and carvedilol 1-2 weeks ago. Pt reports dull, substernal, nonradiating chest pain that occurs intermittently. Pt requesting prescription for SL nitro, "something that will act quick" to relieve his chest pain. Pt denies chest pain at this time. Denies any associated SOB, nausea, vomiting, diaphoresis. 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 Reports continued occasional tobacco use. MD Complaint: chest pain -: month(s) (1) Onset: during rest Pain Location: substernal Pain Radiation: none Severity: mild Quality: dull Consistency: intermittent Improves With: nitroglycerin Worsens With: nothing re: denies: nausea, vomting, diaphoresis, dyspnea - Related Data Previous Rx's Medication Instructions Recorded Last Taken Type Aspirin EC 325 mg PO QDAY #30 tablet 11/10/18 02/16/19 Rx AtorvaSTATin [Lipitor] 40 mg PO QHS #30 tablet 11/10/18 02/03/19 Rx Carvedilol [Coreg] 6.25 mg PO BID #60 tablet 11/10/18 02/03/19 Rx Clopidogrel [Plavix] 75 mg PO QDAY #30 tablet 11/10/18 02/03/19 Rx ISOSORBIDE MONOnitrate [Imdur ER] 30 mg PO DAILY #30 tablet 11/10/18 02/03/19 Rx Lisinopril [Zestril TAB] 40 mg PO DAILY #30 tablet 11/10/18 02/03/19 Rx Allergies Allergy/AdvReac Type Severity Reaction Status Date / Time No Known Allergies Allergy Verified 09/03/17 04:13 Heart Score - HEART Score History: Moderately suspicious EKG: Normal Age: 45-65 Risk factors: > 3 risk factors or hx of atherosclerotic disease Troponin: < normal limit HEART Score: 4 ED Review of Systems ROS: Stated complaint: CHEST PAIN, FEVER Other details as noted in HPI Comment: All other systems reviewed and negative Respiratory: denies: shortness of breath Cardiovascular: chest pain Gastrointestinal: denies: nausea, vomiting ED Past Medical Hx - Past Medical History Previous Medical History?: Yes Hx Hypertension: Yes Additional medical history: UTI, CAD - Surgical History Past Surgical History?: Yes Hx Coronary Stent: Yes Additional Surgical History: stents x2 - Social History Smoking Status: Current Every Day Smoker Substance Use Type: Alcohol - Medications Home Medications: Home Medications Medication Instructions Recorded Confirmed Last Taken Type Aspirin EC 325 mg PO QDAY #30 tablet 11/10/18 02/17/19 02/16/19 Rx AtorvaSTATin [Lipitor] 40 mg PO QHS #30 tablet 11/10/18 02/17/19 02/03/19 Rx Carvedilol [Coreg] 6.25 mg PO BID #60 tablet 11/10/18 02/17/19 02/03/19 Rx Clopidogrel [Plavix] 75 mg PO QDAY #30 tablet 11/10/18 02/17/19 02/03/19 Rx ISOSORBIDE MONOnitrate [Imdur ER] 30 mg PO DAILY #30 tablet 11/10/18 02/17/19 02/03/19 Rx Lisinopril [Zestril TAB] 40 mg PO DAILY #30 tablet 11/10/18 02/17/19 02/03/19 Rx ED Physical Exam - General Limitations: No Limitations General appearance: alert, in no apparent distress - Head Head exam: Present: atraumatic, normocephalic - Eye Eye exam: Present: normal appearance, PERRL, EOMI - ENT ENT exam: Present: mucous membranes moist - Neck Neck exam: Present: normal inspection - Respiratory Respiratory exam: Present: normal lung sounds bilaterally. Absent: respiratory distress - Cardiovascular Cardiovascular Exam: Present: regular rate, normal rhythm - GI/Abdominal GI/Abdominal exam: Present: soft. Absent: distended, tenderness - Extremities Exam Extremities exam: Present: normal inspection - Neurological Exam Neurological exam: Present: alert, oriented X3 - Psychiatric Psychiatric exam: Present: normal affect, normal mood - Skin Skin exam: Present: warm, dry, intact, normal color ED Course Vital Signs 02/17/19 02/17/19 02/17/19 00:07 00:08 02:03 Temperature 98.8 F 98.8 F Pulse Rate 80 81 Respiratory 16 16 16 Rate Blood Pressure 148/93 148/93 Blood Pressure [Left] O2 Sat by Pulse 98 98 99 Oximetry 02/17/19 02:05 Temperature Pulse Rate 71 Respiratory 16 Rate Blood Pressure Blood Pressure 158/90 [Left] O2 Sat by Pulse 99 Oximetry ED Medical Decision Making - Lab Data Result diagrams: 02/17/19 00:30 02/17/19 00:30 - EKG Data -: EKG Interpreted by Me EKG shows normal: sinus rhythm, axis, intervals, QRS complexes - EKG Data When compared to previous EKG there are: no significant change (compared to November 2018) Interpretation: LVH - Radiology Data Radiology results: report reviewed, image reviewed - Medical Decision Making 59 yo M w/ chest pain, currently has 3 cardiac stents. Pt is noncompliant. Continues to smoke, has been out of his medications for 1-[address] Moses's note, pt was to f/u 4-6 wks following discharge in November to have stress test for assessment of LAD stenosis. Pt has not followed up with cardiology. Reports intermittent pain over the last month. EKG currently shows no acute changes, troponin is normal. Will admit to hospitalist, Dr Rivera, for further evaluation. - Differential Diagnosis ACS, atypical chest pain, GERD Critical care attestation.: If time is entered above; I have spent that time in minutes in the direct care of this critically ill patient, excluding procedure time. ED Disposition Clinical Impression: Acute chest pain Disposition: OP ADMIT IP TO THIS HOSP Is pt being admited?: Yes Condition: Stable Instructions: Chest Pain (ED) Referrals: PRIMARY CARE, [Primary Care Provider] - 3-5 Days Time of Disposition: 04:07
[2019-02-17] MEDS ORDERED: ASPIRIN PO ONE (04:14)
[2019-02-17] MEDS ORDERED: TYLENOL PO PRN (04:47)
[2019-02-17] MEDS ORDERED: MORPHINE IV PRN (04:47)
[2019-02-17] MEDS ORDERED: ZOFRAN IV PRN (04:47)
[2019-02-17] MEDS ORDERED: SODIUM CHLORIDE FLUSH SYRINGE 10 ML IV PRN (04:47)
--- NOTE | 2019-02-17 04:49 | History and Physical Report ---
History of Present Illness Date of examination: 02/17/19 History of present illness: 59-year-old man with a history of coronary artery disease,s/p recent stent, hypertension, hyperlipidemia, noncompliant with medications, come to emergency room with complaints of chest pain located in the epigastric area, sharp, interm ittent every 5 minutes, intensity 6/10, no radiation,associated with shortness of breath, nausea. he rn out of his medications 2 weeks ago eview Of Systems: Constitutional: no weight loss, fever, chills Ears, eyes, nose, mouth and throat: no nasal congestion, no nasal discharge, no sinus pressure, blurry vision, diplopia Neck: No neck pain or rigidity. Cardiovascular: No palpitations Respiratory: No cough Gastrointestinal: No hematochezia, abdominal pain Genitourinary : no dysuria, frequency , hematuria Musculoskeletal: no muscle ache , joint pain Integumentary: no rash, no pruritis Neurological: no parathesias, focal weakness Endocrine: no cold or heat intolerance, no polyuria or polydipsia Hematologic/Lymphatic: no easy bruising, no easy bleeding, no gland swelling Allergic/Immunologic: no urticaria, no angioedema. PAST MEDICAL HISTORY:coronary artery disease, hypertension, hyperlipidemia, PAST SURGICAL HISTORY:none FAMILY HISTORY:hypertension, diabetes SOCIAL HISTORY: :+ tobacco, drugs, +alcohol Medications and Allergies Allergies Allergy/AdvReac Type Severity Reaction Status Date / Time No Known Allergies Allergy Verified 09/03/17 04:13 Home Medications Medication Instructions Recorded Confirmed Last Taken Type Aspirin EC 325 mg PO QDAY #30 tablet 11/10/18 02/17/19 02/16/19 Rx AtorvaSTATin [Lipitor] 40 mg PO QHS #30 tablet 11/10/18 02/17/19 02/03/19 Rx Carvedilol [Coreg] 6.25 mg PO BID #60 tablet 11/10/18 02/17/19 02/03/19 Rx Clopidogrel [Plavix] 75 mg PO QDAY #30 tablet 11/10/18 02/17/19 02/03/19 Rx ISOSORBIDE MONOnitrate [Imdur ER] 30 mg PO DAILY #30 tablet 11/10/18 02/17/19 02/03/19 Rx Lisinopril [Zestril TAB] 40 mg PO DAILY #30 tablet 11/10/18 02/17/1902/03/19 Rx Exam - Physical Exam Narrative exam: General Apperance: The patient sitting in bed no acute distress HEENT: Normocephalic, atraumatic. Pupils equally round and reactive to light, extraocular movement intact, and no sclericterus or JVD or thyromegaly or nodule. Neck supple, no carotid bruit, mucous membranes moist, no exudate or erythema Heart: S1-S2, regular is rhythm Lungs: Clear to auscultation bilaterally, breathing comfortable Abdomen: Positive bowel sounds, soft, nontender, nondistended, no organomegaly Extremities: No edema cyanosis clubbing Skin: no rash, nodule, warm and dry Neuro:CN 2 -12 intact, motor/sensory intact, speech is fluent - Constitutional Vitals: Temp Pulse Resp BP Pulse Ox 98.8 F 71 16 158/90 99 02/17/19 00:08 02/17/19 02:05 02/17/19 02:05 02/17/19 02:05 02/17/19 02:05 Results - Labs CBC & Chem 7: 02/17/19 00:30 02/17/19 00:30 Labs: Abnormal lab results 02/17/19 Range/Units 00:30 MCV 95 H (84-94) fl - Imaging and Cardiology EKG: image reviewed Chest x-ray: report reviewed Assessment and Plan Assessment chest pain CAD Hypertension Hyperlidiemia Tobacco abuse Plan: check cardiac enzymrs, Cardiology consulted Gen. appropriate outpatient medications IV morphine, DVT prophalaxis
[2019-02-17 09:19] VITALS: BP 167/100
--- NOTE | 2019-02-17 09:47 | Consultation ---
History of Present Illness Consult date: 02/17/19 Consult reason: chest pain History of present illness: 59 YO man with h/o Htn, HL, tobacco use, chronic non-compliance and CAD s/p recent angioplasty and stenting of the distal circumflex following a non-ST elevation myocardial infarction in 11/2018. He was also noted to have lesions of borderline severity of the ostium of the circumflex and the mid segment of the LAD, recommended for medical therapy and aggressive risk factor modification. At that time outpatient follow-up with cardiology was recommended in 7 days. The plan was for an exercise thallium stress test to be done for further assessment of borderline severity of the mid LAD stenosis as outpatient in 4-6 weeks. Unfortunately, he never followed up as outpatient and reports he ran out of his other medications but has been taking aspirin and plavix consistently. He presented with recurrent epigastric and mid sternal chest pain. ND has been ruled out with negative cardiac enzymes. ECG reveals Sinur rhtyhm, likely LVH, early repolariztion Past History Past Medical History: CAD, hypertension, hyperlipidemia Past Surgical History: PTCA Social history: smoking Family history: hypertension Medications and Allergies Allergies Allergy/AdvReac Type Severity Reaction Status Date / Time No Known Allergies Allergy Verified 09/03/17 04:13 Home Medications Medication Instructions Recorded Confirmed Last Taken Type Aspirin EC 325 mg PO QDAY #30 tablet 11/10/18 02/17/19 02/16/19 Rx AtorvaSTATin [Lipitor] 40 mg PO QHS #30 tablet 11/10/18 02/17/19 02/03/19 Rx Carvedilol [Coreg] 6.25 mg PO BID #60 tablet 11/10/18 02/17/19 02/03/19 Rx Clopidogrel [Plavix] 75 mg PO QDAY #30 tablet 11/10/18 02/17/19 02/03/19 Rx ISOSORBIDE MONOnitrate [Imdur ER] 30 mg PO DAILY #30 tablet 11/10/18 02/17/19 02/03/19 Rx Lisinopril [Zestril TAB] 40 mg PO DAILY #30 tablet 11/10/18 02/17/19 02/03/19 Rx Active Meds: Active Medications Acetaminophen (Tylenol) 650 mg PO Q4H PRN PRN Reason: Pain MILD(1-3)/Fever >100.5/FLORES Aspirin (Ecotrin) 325 mg PO QDAY [facility] Last Admin: 02/17/19 09:18 Dose: 325 mg Documented by: Atorvastatin Calcium (Lipitor) 40 mg PO QHS [facility] Carvedilol (Coreg) 6.25 mg PO BID [facility] Last Admin: 02/17/19 09:18 Dose: 6.25 mg Documented by: Clopidogrel Bisulfate (Plavix) 75 mg PO QDAY [facility] Last Admin: 02/17/19 09:18 Dose: 75 mg Documented by: Enoxaparin Sodium (Lovenox) 40 mg SUB-Q QDAY@1000 [facility] Last Admin: 02/17/19 09:19 Dose: 40 mg Documented by: Isosorbide Mononitrate (Imdur) 30 mg PO DAILY [facility] Last Admin: 02/17/19 09:18 Dose: 30 mg Documented by: Lisinopril (Zestril) 40 mg PO DAILY [facility] Last Admin: 02/17/19 09:19 Dose: 40 mg Documented by: Morphine Sulfate (Morphine) 2 mg IV Q4H PRN PRN Reason: Pain, Moderate (4-6) Ondansetron HCl (Zofran) 4 mg IV Q8H PRN PRN Reason: Nausea And Vomiting Sodium Chloride (Sodium Chloride Flush Syringe 10 Ml) 10 ml IV BID [facility] Last Admin: 02/17/19 09:20 Dose: 10 ml Documented by: Sodium Chloride (Sodium Chloride Flush Syringe 10 Ml) 10 ml IV PRN PRN PRN Reason: LINE FLUSH Review of Systems All systems: negative (per hpi) Physical Examination Vital Signs Temp Pulse Resp BP Pulse Ox 98.8 F 80 16 148/93 98 02/17/19 00:07 02/17/19 00:07 02/17/19 00:07 02/17/19 00:07 02/17/19 00:07 General appearance: no acute distress HEENT: Positive: PERRL, EOMI Cardiac: Positive: Reg Rate and Rhythm Lungs: Positive: clear to auscultation Abdomen: Positive: Soft, Active Bowel Sounds Extremities: Absent: edema Results 02/17/19 00:30 02/17/19 00:30 Cardiac Enzymes 02/17/19 02/17/19 02/17/19 Range/Units 00:30 00:30 03:04 WBC 7.5 (4.5-11.0) K/mm3 RBC 4.06 (3.65-5.03) M/mm3 Hgb 12.8 (11.8-15.2) gm/dl Hct 38.4 (35.5-45.6) % MCV 95 H (84-94) fl MCH 32 (28-32) pg MCHC 33 (32-34) % RDW 14.5 (13.2-15.2) % Plt Count 247 (140-440) K/mm3 Lymph % (Auto) 27.5 (13.4-35.0) % [place] % (Auto) 5.3 (0.0-7.3) % Eos % (Auto) 1.5 (0.0-4.3) % Baso % (Auto) 1.1 (0.0-1.8) % Lymph # 2.1 (1.2-5.4) K/mm3 [place] # 0.4 (0.0-0.8) K/mm3 Eos # 0.1 (0.0-0.4) K/mm3 Baso # 0.1 (0.0-0.1) K/mm3 Seg Neutrophils % 64.6 (40.0-70.0) % Seg Neutrophils # 4.9 (1.8-7.7) K/mm3 Sodium 141 (137-145) mmol/L Potassium 4.2 (3.6-5.0) mmol/L Chloride 106.4 (98-107) mmol/L Carbon Dioxide 26 (22-30) mmol/L Anion Gap 13 mmol/L BUN 17 (9-20) mg/dL Creatinine 0.8 (0.8-1.5) mg/dL Estimated GFR > 60 ml/min BUN/Creatinine Ratio 21 % Glucose 94 (75-100) mg/dL Calcium 9.6 (8.4-10.2) mg/dL Troponin T < 0.010 < 0.010 (0.00-0.029) ng/mL 02/17/19 Range/Units 06:42 WBC (4.5-11.0) K/mm3 RBC (3.65-5.03) M/mm3 Hgb (11.8-15.2) gm/dl Hct (35.5-45.6) % MCV (84-94) fl MCH (28-32) pg MCHC (32-34) % RDW (13.2-15.2) % Plt Count (140-440) K/mm3 Lymph % (Auto) (13.4-35.0) % [place] % (Auto) (0.0-7.3) % Eos % (Auto) (0.0-4.3) % Baso % (Auto) (0.0-1.8) % Lymph # (1.2-5.4) K/mm3 [place] # (0.0-0.8) K/mm3 Eos # (0.0-0.4) K/mm3 Baso # (0.0-0.1) K/mm3 Seg Neutrophils % (40.0-70.0) % Seg Neutrophils # (1.8-7.7) K/mm3 Sodium (137-145) mmol/L Potassium (3.6-5.0) mmol/L Chloride (98-107) mmol/L Carbon Dioxide (22-30) mmol/L Anion Gap mmol/L BUN (9-20) mg/dL Creatinine (0.8-1.5) mg/dL Estimated GFR ml/min BUN/Creatinine Ratio % Glucose (75-100) mg/dL Calcium (8.4-10.2) mg/dL Troponin T < 0.010 (0.00-0.029) ng/mL CBC 02/17/19 Range/Units 00:30 WBC 7.5 (4.5-11.0) K/mm3 RBC 4.06 (3.65-5.03) M/mm3 Hgb 12.8 (11.8-15.2) gm/dl Hct 38.4 (35.5-45.6) % Plt Count 247 (140-440) K/mm3 Lymph # 2.1 (1.2-5.4) K/mm3 [place] # 0.4 (0.0-0.8) K/mm3 Eos # 0.1 (0.0-0.4) K/mm3 Baso # 0.1 (0.0-0.1) K/mm3 Comprehensive Metabolic Panel 02/17/19 Range/Units 00:30 Sodium 141 (137-145) mmol/L Potassium 4.2 (3.6-5.0) mmol/L Chloride 106.4 (98-107) mmol/L Carbon Dioxide 26 (22-30) mmol/L BUN 17 (9-20) mg/dL Creatinine 0.8 (0.8-1.5) mg/dL Glucose 94 (75-100) mg/dL Calcium 9.6 (8.4-10.2) mg/dL Assessment and Plan Recurrent chest pain in patient with CAD s/p Cx PCI earlier this year and known borderline LAD lesion. Chronic non-compliance Htn HL Plan: MPI tomorrow.
[2019-02-17] MEDS ORDERED: LOVENOX SUB-Q SCH ×2 (10:00)
[2019-02-17] MEDS ORDERED: IMDUR PO SCH (10:00)
[2019-02-17] MEDS ORDERED: COREG PO SCH (10:00)
[2019-02-17] MEDS ORDERED: PLAVIX PO SCH (10:00)
[2019-02-17] MEDS ORDERED: SODIUM CHLORIDE FLUSH SYRINGE 10 ML IV SCH (10:00)
[2019-02-17] MEDS ORDERED: ZESTRIL PO SCH (10:00)
[2019-02-17] MEDS ORDERED: ECOTRIN PO SCH (10:00)
== END 2019-02-17 15:14 | disposition home or self-care (01) ==
LOC: ED 00:02 → 4A 04:17
PROVIDERS: ADMIT Internal Medicine; ATTEND Family Medicine
DX: R07.89 Other chest pain (principal); I25.10 Atherosclerotic heart disease of native coronary artery without angina pectoris; I10 Essential (primary) hypertension; E78.5 Hyperlipidemia, unspecified; F17.200 Nicotine dependence, unspecified, uncomplicated; Z95.1 Presence of aortocoronary bypass graft; Z91.14 Patient's other noncompliance with medication regimen; Z79.82 Long term (current) use of aspirin; Z87.440 Personal history of urinary (tract) infections
CPT/HCPCS: 36415; 71045; 80048; 84484; 85025; 93005; 93010; 96372; 96374; 99284; G0378; J1650; J2270

== ENCOUNTER 2019-08-19 19:10 | Emergency (ER) | payer SELFPAY ==
--- NOTE | 2019-08-19 19:36 | Emergency Department Report ---
Blank Doc - Documentation Documentation: 59-year-old male that presents with hemostasis and URI symptoms. This initial assessment/diagnostic orders/clinical plan/treatment(s) is/are subject to change based on patient's health status, clinical progression and re- assessment by fellow clinical providers in the ED. Further treatment and workup at subsequent clinical providers discretion. Patient/guardians urged not to elope from the ED as their condition may be serious if not clinically assessed and managed. Initial orders include: 1- Patient sent to [facility] for further evaluation and treatment 2- CXR
[2019-08-19 20:08] LABS: Basophils # (Auto) 0.1 K/mm3 (0.0-0.1); Basophils % (Auto) 0.9 % (0.0-1.8); Eosinophils # (Auto) 0.1 K/mm3 (0.0-0.4); Eosinophils % (Auto) 1.8 % (0.0-4.3); Hematocrit 39.8 % (35.5-45.6); Hemoglobin 13.3 gm/dl (11.8-15.2); Lymphocytes # (Auto) 2.2 K/mm3 (1.2-5.4); Lymphocytes % (Auto) 28.2 % (13.4-35.0); Mean Corpuscular HGB Conc 33 % (32-34); Mean Corpuscular Volume 93 fl (84-94); Monocytes # (Auto) 0.4 K/mm3 (0.0-0.8); Monocytes % (Auto) 5.6 % (0.0-7.3); Platelet Count 287 K/mm3 (140-440); Red Blood Count 4.27 M/mm3 (3.65-5.03); Red Cell Distribution Width 14.7 % (13.2-15.2)
[2019-08-19 20:17] LABS: INR 0.97 (0.87-1.13)
[2019-08-19 20:18] LABS: BUN/Creatinine Ratio 11; Blood Urea Nitrogen 9 mg/dL (9-20); Calcium 9.6 mg/dL (8.4-10.2); Hemolysis Index 5; Partial Thromboplastin Time 27.4 Sec. (24.2-36.6)
--- NOTE | 2019-08-19 20:26 | XRay Report ---
CHEST PA AND LATERAL VIEWS INDICATION: cough. COMPARISON: 02/17/2019 FINDINGS: Support devices: None. Heart: Within normal limits. Lungs/Pleura: No acute pulmonary or pleural findings. IMPRESSION: 1. No acute findings. Signer Name: Tyree Trujillo MD Signed: 08/19/2019 8:22 PM Workstation Name: [id number]
[2019-08-19 20:39] VITALS: BP 181/119
[2019-08-19] MEDS ORDERED: ACETAMINOPHEN 325 MG TAB ONE (21:21)
[2019-08-19] MEDS ORDERED: ACETAMINOPHEN 325 MG TAB PO ONE (21:22)
--- NOTE | 2019-08-19 21:35 | Emergency Department Report ---
ED General Adult HPI - General Chief complaint: Upper Respiratory Infection Stated complaint: SPITTTING UP BLOOD/FEVER/HEADACHE Time Seen by Provider: 08/19/19 19:36 Source: patient Mode of arrival: Ambulatory Limitations: No Limitations - History of Present Illness Initial comments: Patient is a 59-year-old F [place] male with a past medical history of smoking as well as coronary artery disease who has 2 stents who is presenting with some bloody sputum. Patient states that he has a very mild headache the last 2 to 3 days. States he has a runny nose as well and earlier today he spit and there were appeared to be blood in his spit. Patient is denies any facial pain or sinus congestion. When he blows his nose he states that his nasal drainage is clear. He denies cough or shortness of breath. Patient states he has no fever chills nausea vomiting at this time. Severity scale (0 -10): 8 - Related Data Previous Rx's Medication Instructions Recorded Last Taken Type Aspirin EC [Ecotrin] 325 mg PO QDAY #30 tablet 11/10/18 02/16/19 Rx AtorvaSTATin [Lipitor] 40 mg PO QHS #30 tablet 11/10/18 02/03/19 Rx Clopidogrel [Plavix] 75 mg PO QDAY #30 tablet 11/10/18 02/03/19 Rx ISOSORBIDE MONOnitrate [Imdur ER] 30 mg PO DAILY #30 tablet 11/10/18 02/03/19 Rx carvediloL [Coreg] 6.25 mg PO BID #60 tablet 11/10/18 02/03/19 Rx lisinopriL [Zestril TAB] 40 mg PO DAILY #30 tablet 11/10/18 02/03/19 Rx Allergies Allergy/AdvReac Type Severity Reaction Status Date / Time No Known Allergies Allergy Verified 09/03/17 04:13 ED Review of Systems ROS: Stated complaint: SPITTTING UP BLOOD/FEVER/HEADACHE Other details as noted in HPI Comment: All other systems reviewed and negative ED Past Medical Hx - Past Medical History Hx Hypertension: Yes Additional medical history: UTI, CAD - Surgical History Hx Coronary Stent: Yes Additional Surgical History: stents x2 - Social History Smoking Status: Current Every Day Smoker Substance Use Type: Alcohol - Medications Home Medications: Home Medications Medication Instructions Recorded Confirmed Last Taken Type Aspirin EC [Ecotrin] 325 mg PO QDAY #30 tablet 11/10/18 02/17/19 02/16/19 Rx AtorvaSTATin [Lipitor] 40 mg PO QHS #30 tablet 11/10/18 02/17/19 02/03/19 Rx Clopidogrel [Plavix] 75 mg PO QDAY #30 tablet 11/10/18 02/17/19 02/03/19 Rx ISOSORBIDE MONOnitrate [Imdur ER] 30 mg PO DAILY #30 tablet 11/10/18 02/17/19 02/03/19 Rx carvediloL [Coreg] 6.25 mg PO BID #60 tablet 11/10/18 02/17/19 02/03/19 Rx lisinopriL [Zestril TAB] 40 mg PO DAILY #30 tablet 11/10/18 02/17/19 02/03/19 Rx ED Physical Exam - General Limitations: No Limitations General appearance: alert, in no apparent distress - Head Head exam: Present: atraumatic, normocephalic - Eye Eye exam: Present: normal appearance - ENT ENT exam: Present: mucous membranes moist, other (Patient has a small amount of blood-tinged saliva in the back of his throat that he is able to spit out.) - Neck Neck exam: Present: normal inspection - Respiratory Respiratory exam: Present: normal lung sounds bilaterally. Absent: respiratory distress, wheezes, rales, rhonchi - Cardiovascular Cardiovascular Exam: Present: regular rate, normal rhythm, normal heart sounds. Absent: systolic murmur, diastolic murmur, rubs, gallop - GI/Abdominal GI/Abdominal exam: Present: soft, normal bowel sounds. Absent: distended, tenderness, guarding, rebound - Rectal Rectal exam: Present: deferred - Extremities Exam Extremities exam: Present: normal inspection - Back Exam Back exam: Present: normal inspection - Neurological Exam Neurological exam: Present: alert, oriented X3 - Psychiatric Psychiatric exam: Present: normal affect, normal mood - Skin Skin exam: Present: warm, dry, intact, normal color. Absent: rash ED Course Vital Signs 08/19/19 08/19/19 08/19/19 19:35 20:36 20:38 Temperature 98.2 F 98.6 F Pulse Rate 81 79 Respiratory 18 18 15 Rate Blood Pressure 177/106 Blood Pressure 181/119 [Right] O2 Sat by Pulse 99 100 99 Oximetry 08/19/19 21:25 Temperature Pulse Rate Respiratory 18 Rate Blood Pressure Blood Pressure [Right] O2 Sat by Pulse Oximetry - Reevaluation(s) Reevaluation #1: 08/19/19 21:37 Patient's blood pressure was elevated however had not taken his night medications. Patient is taking these medications here in emergency department. ED Medical Decision Making - Lab Data Result diagrams: 08/19/19 19:58 08/19/19 19:58 Lab Results 08/19/19 08/19/19 08/19/19 Range/Units 19:58 19:58 19:58 WBC 7.7 (4.5-11.0) K/mm3 RBC 4.27 (3.65-5.03) M/mm3 Hgb 13.3 (11.8-15.2) gm/dl Hct 39.8 (35.5-45.6) % MCV 93 (84-94) fl MCH 31 (28-32) pg MCHC 33 (32-34) % RDW 14.7 (13.2-15.2) % Plt Count 287 (140-440) K/mm3 Lymph % (Auto) 28.2 (13.4-35.0) % Eddy % (Auto) 5.6 (0.0-7.3) % Eos % (Auto) 1.8 (0.0-4.3) % Baso % (Auto) 0.9 (0.0-1.8) % Lymph # 2.2 (1.2-5.4) K/mm3 Eddy # 0.4 (0.0-0.8) K/mm3 Eos # 0.1 (0.0-0.4) K/mm3 Baso # 0.1 (0.0-0.1) K/mm3 Seg Neutrophils % 63.5 (40.0-70.0) % Seg Neutrophils # 4.9 (1.8-7.7) K/mm3 PT 13.0 (12.2-14.9) Sec. INR 0.97 (0.87-1.13) APTT 27.4 (24.2-36.6) Sec. Sodium 140 (137-145) mmol/L Potassium 4.3 (3.6-5.0) mmol/L Chloride 103.8 (98-107) mmol/L Carbon Dioxide 24 (22-30) mmol/L Anion Gap 17 mmol/L BUN 9 (9-20) mg/dL Creatinine 0.8 (0.8-1.5) mg/dL Estimated GFR > 60 ml/min BUN/Creatinine Ratio 11 % Glucose 90 (75-100) mg/dL Calcium 9.6 (8.4-10.2) mg/dL - Radiology Data [facility] [address] [place] [address] XRay Report Signed Patient: MCKINLEY SIMS MR#: [id number] : 1960 Acct:[id number] Age/Sex: 59 / M ADM Date: 08/19/19 Loc: ED Attending Dr: Ordering Physician: DAISY BOOKER NP Date of Service: 08/19/19 Procedure(s): XR chest routine 2V Accession Number(s): [id number] cc: DAISY BOOKER NP Fluoro Time In Minutes: CHEST PA AND LATERAL VIEWS INDICATION: cough. COMPARISON: 02/17/2019 FINDINGS: Support devices: None. Heart: Within normal limits. Lungs/Pleura: No acute pulmonary or pleural findings. IMPRESSION: 1. No acute findings. Signer Name: Tyree Trujillo MD Signed: 08/19/2019 8:22 PM Workstation Name: [id number] Transcribed By: ZION Dictated By: Tyree Trujillo MD Electronically Authenticated By: Tyree Trujillo MD Signed Date/Time: 08/19/192021 - Medical Decision Making Patient does have some blood-tinged sputum on physical exam. Patient has no swelling to the neck at this time. There is no lymphadenopathy. Tongue appears normal. Patient has no bloody rhinorrhea. Patient states he is not coughing and his chest x-ray is within normal limits. There is no shortness of breath or abnormal lung sounds. Patient is bleeding is likely just posterior to the area that is visualized at his tongue. Do suggest that the patient follow-up with ear nose and throat to have further evaluation. In the interim patient will be given something for his mild headache and the patient also do salt water gargling. Critical care attestation.: If time is entered above; I have spent that time in minutes in the direct care of this critically ill patient, excluding procedure time. ED Disposition Clinical Impression: Bloody sputum Disposition: DC-01 TO HOME OR SELFCARE Is pt being admited?: No Does the pt Need Aspirin: No Condition: Stable Additional Instructions: It is important for you to follow-up with the ear nose and throat doctor. You may have a lesion which is bleeding just posterior to your tongue. Cancer and other tumors cannot be ruled out from the emergency department. Your laboratory studies are normal at this time and it does not appear to treat her bleeding to the level that you are in any immediate danger however it is important for you to get urgent follow-up. Please do salt water gargling and call the ear nose and throat physician and make an appointment as soon as possible Referrals: SHER SINCLAIR MD [Staff Physician] - 3-5 Days FREE,MAYRA Tsai MD [Staff Physician] - 3-5 Days Time of Disposition: 21:39
== END 2019-08-19 22:07 | disposition home or self-care (01) ==
LOC: ED 19:10
DX: R04.2 Hemoptysis (principal); F17.200 Nicotine dependence, unspecified, uncomplicated; I10 Essential (primary) hypertension; Z95.818 Presence of other cardiac implants and grafts; Z79.899 Other long term (current) drug therapy
CPT/HCPCS: 36415; 71046; 80048; 85025; 85610; 85730